=== PATIENT | female | born 1960 | race Caucasian/White ===

== ENCOUNTER 2016-12-20 10:31 | Day surgery (SDC) ==
[2016-12-20] MEDS ORDERED: ZOMETA 4 MG in NS 100 ML IV ONE (10:57)
[2016-12-20] MEDS ORDERED: ARANESP SUBQ ONE (10:58)
[2016-12-20] MEDS ORDERED: HEPARIN ONE (11:16)
[2016-12-20 11:19] VITALS: BP 140/71
== END 2016-12-20 11:51 | disposition home or self-care (01) ==
LOC: INF 10:31
PROVIDERS: ATTEND Internal Medicine
DX: D64.81 Anemia due to antineoplastic chemotherapy (principal); C50.412 Malignant neoplasm of upper-outer quadrant of left female breast; C77.3 Secondary and unspecified malignant neoplasm of axilla and upper limb lymph nodes; Z79.899 Other long term (current) drug therapy; Z79.82 Long term (current) use of aspirin; Z79.818 Long term (current) use of other agents affecting estrogen receptors and estrogen levels; C79.51 Secondary malignant neoplasm of bone; D62 Acute posthemorrhagic anemia; E87.6 Hypokalemia; R74.8 Abnormal levels of other serum enzymes
CPT/HCPCS: 82607; 82728; 82746; 83540; 83550; 84439; 84443; 86300; 96365; 96375; J0881; J3489

== ENCOUNTER 2017-01-03 11:44 | Day surgery (SDC) ==
[2017-01-03] MEDS ORDERED: NS 250 ML ONE (11:59)
[2017-01-03] MEDS ORDERED: FASLODEX IM ONE (12:00)
[2017-01-03] MEDS ORDERED: BENADRYL ONE (12:05)
[2017-01-03] MEDS ORDERED: TYLENOL ONE (12:05)
[2017-01-03] MEDS ORDERED: HEPARIN ONE (16:47)
[2017-01-03 17:21] VITALS: BP 138/72
== END 2017-01-03 15:22 | disposition home or self-care (01) ==
LOC: INF 11:44
PROVIDERS: ATTEND Internal Medicine
DX: C79.9 Secondary malignant neoplasm of unspecified site (principal); C50.919 Malignant neoplasm of unspecified site of unspecified female breast; D63.0 Anemia in neoplastic disease; Z79.899 Other long term (current) drug therapy
CPT/HCPCS: 36430; 86850; 86900; 86901; 86920; 96372; J7050; J9395; P9016

== ENCOUNTER 2017-02-17 18:29 | Inpatient (IN) ==
[2017-02-17] MEDS ORDERED: HEPARIN ONE (19:29)
[2017-02-17] MEDS ORDERED: SODIUM CHLORIDE 0.9% INJ ONE (19:55)
[2017-02-17] MEDS ORDERED: PROTONIX IV ONE (19:55)
[2017-02-17] MEDS ORDERED: NS 1,000 ML IV ONE ×2 (19:55→21:07)
[2017-02-17] MEDS ORDERED: REGLAN IV ONE (19:55)
--- NOTE | 2017-02-17 20:00 | PROVIDER DOCUMENTATION ---
HPI-Abdominal Pain/GI Problem - General Chief Complaint: N/V/D Stated Complaint: N/V/D Time Seen by Provider: 02/17/17 19:39 Source: patient Allergies/Adverse Reactions: Patient Allergies Allergy/AdvReac Type Severity Reaction Status Date / Time amoxicillin Allergy NAUSEA Verified 02/17/17 19:15 potassium clavulanate * AdvReac NAUSEA/VOMI Verified 02/17/17 19:15 [From Augmentin] TING Home Medications: Home Medication List Medication Instructions Recorded Confirmed Last Taken Type Valsartan/Hydrochlorothiazide 320 each PO DAILY 07/03/15 02/17/17 02/11/17 20: 00 History [Valsartan-Hctz 320-25 mg Tab] Aspirin [Aspirin EC] 81 mg PO QHS 11/25/15 02/17/17 02/11/17 20:00 History Calcium Carbonate/Vit D3 [Caltrate 600 mg PO DAILY 01/12/16 02/17/17 02/11/17 20 :00 History 600 + D] Ondansetron [Zofran] 8 mg PO PRN PRN 02/16/16 02/17/17 02/06/17 08:00 History Hydrocodone/APAP 7.5 mg/325 mg 1 each PO Q4H PRN PRN #10 tablet 02/17/1602/12/17 20:00 Rx [[place]-7.5] Fulvestrant [Faslodex] 500 mg IM DIRECTED 11/08/16 02/17/17 01/31/17 11:30 History Zoledronic Acid/Mannitol&Water 4 mg IV DIRECTED 11/08/16 02/17/17 01/17/17 11 :30 History [Zometa 4 mg/100 ml Injection] Promethazine [Phenergan] 12.5 mg PO Q6H PRN PRN #30 tablet 12/03/16 02/17/17 09:00 Rx Folic Acid 1 mg PO DAILY 01/03/17 02/17/17 02/11/17 20:00 History Levothyroxine Sodium [Synthroid] 50 microgm PO DAILY 01/03/17 02/17/17 02/11/17 07:30 History Metoclopramide [Reglan] 10 mg PO AC + HS 04/02/17/17 02/12/17 20:00 History Darbepoetin Raymundo in Polysorbat 100 mcg IJ DIRECTED 02/17/17 02/17/17 Unknown History [Aranesp] Esomeprazole [Nexium] 40 mg PO BID #45 capsule 02/18/17 Unknown Rx - History of Present Illness-ABD Nature of Presenting Problems: 56 y/o WF presents to the ED with c/o N/V/D x 1 day. Pt states stage 4 breast CA pt of Dr. Perdomo with mets to bone. Reports that she has been doing well this week, but took pain meds yesterday without PO reglan or with food and has been vomiting since. States 5-6 episodes of vomiting today with small amounts of diarrhea x 4 today. States has not been able to keep down any food or water. Denies fever/chills, abd. pain, SOB, CP. Review of Systems - Adult - REVIEW OF SYSTEMS - ADULT Constitutional: reports: no symptoms reported. denies: chills, fever Eyes: reports: no symptoms reported. denies: blurred vision, double vision Ears, Nose, Mouth & Throat: reports: no symptoms reported. denies: ear pain, nose pain Cardiovascular: reports: no symptoms reported. denies: chest pain, palpitations Respiratory: reports: no symptoms reported. denies: cough, shortness of breath Gastrointestinal: reports: see HPI, diarrhea, nausea, vomiting. denies: abdominal pain, constipation Genitourinary: reports: no symptoms reported. denies: dysuria, frequency Musculoskeletal: reports: no symptoms reported. denies: joint pain, joint swelling Integumentary: reports: no symptoms reported. denies: nail changes, rash Neurological: reports: no symptoms reported. denies: numbness, paresthesia Psychiatric: reports: no symptoms reported Endocrine: reports: no symptoms reported. denies: cold intolerance, heat intolerance Hematologic/Lymphatic: reports: see HPI. denies: easy bruising, prolonged bleeding Allergic/Immunologic: reports: no symptoms reported All Other Systems: Reviewed and Negative Past History - Adult - PAST MEDICAL HISTORY-ADULT Review of Records: reports: Nursing Assessment Review, Medications Reviewed Major Childhood Illnesses: reports: denies history Cardiovascular: reports: denies history Respiratory: reports: denies history Gastrointestinal: reports: denies history Obstetrical/Gynecological: reports: denies history Genitourinary: reports: denies history Musculoskeletal: reports: denies history Neurological: reports: denies history Psychiatric: reports: anxiety Endocrine/Immune: reports: cancer (breast, stage 4, with mets) Other Conditions: reports: denies history - PRIOR SURGERIES/PROCEDURES Surgical/Procedure History: reports: breast - PRIOR HOSPITALIZATIONS Prior Hospitalizations: reports: for similar symptoms - IMMUNIZATION STATUS Childhood Immunizations: See Nurse Assessment Flu Vaccine: See Nurse Assessment - FAMILY HISTORY Family History: reviewed, not pertinent - SOCIAL HISTORY Smoking: denies Physical Exam-General - PHYSICAL EXAM-ADULT Initial Vital Signs Reviewed: Yes - CONSTITUTIONAL General Appearance: alert, moderate distress, obese - EYES Eyes: pink conjunctivae - HEAD, EARS, NOSE, MOUTH & THROAT HENMT: normocephalic/atraumatic, moist mucous membranes - NECK Neck: normal inspection - RESPIRATORY Respiratory: lungs clear, normal breath sounds. negative: crackles, rales, rhonchi, stridor, wheezing - CARDIOVASCULAR Cardiovascular: tachycardia (mild). negative: bradycardia - GASTROINTESTINAL (ABDOMEN) Abdominal Exam: normal bowel sounds, non tender, soft. negative: distended, guarding, rigid - MUSCULOSKELETAL Back Exam: normal inspection - SKIN Integumentary: normal color (mildly pale), normal turgor. negative: cyanosis, diaphoresis - NEUROLOGIC Neurologic: negative: aphasia - PSYCHIATRIC Psych/Mental Status: normal mood/affect Progress - PLAN OF CARE/RESULTS Progress/Plan/Lab Results: Vital Signs - 8 hr 02/17/17 18:58 Temperature 99.9 F H Pulse Rate 105 H Respiratory Rate 20 Blood Pressure 151/84 O2 Sat by Pulse Oximetry 97 Orders Category Date Time Status Saline Loc DIRECTED Care 02/17/17 19:39 Ordered NPO Diet 02/17/17 19:39 Ordered AMYLASE [CHEM] Stat Lab 02/17/17 19:39 Uncollected CBC WITH ELECTRONIC DIFF [HEME] Stat Lab 02/17/17 19:39 Uncollected COMPREHENSIVE METABOLIC PANEL [CHEM] Stat Lab 02/17/17 19:39 Uncollected LIPASE [CHEM] Stat Lab 02/17/17 19:39 Uncollected URINALYSIS W/POSS RFLX CULT-1 [URINALYSIS] Stat Lab 02/17/17 19:39 Uncollected Heparin Med 02/17/17 19:29 Discontinued 500 unit .ROUTE .STK-MED ONE Metoclopramide [Reglan] Med 02/17/17 19:55 Once 10 mg IV NOW ONE Ns 1000 ml IV Bolus X1 Med 02/17/17 19:55 Ordered 0.9% Sodium Chloride Inj [Ns] 1,000 ml IV 999 mls/hr Pantoprazole [Protonix] Med 02/17/17 19:55 Once 40 mg IV NOW ONE Sodium Chloride 0.9% Med 02/17/17 19:55 Once 10 ml INJ NOW ONE Discussed pt with Dr. Fitch; he agreed with admission due to H&H, hypokalemia, and anemia. Result Diagrams: 02/18/17 16:25 02/18/17 16:25 - CONSULTS/PCP/HOSPITALIST Notification #1 *Consult/PCP/Hospitalist*: Dr. Winters Time Discussed: 21:04 Reason/Comments: anemia, hypokalemia, cyclical vomiting Consult Disposition: Admit Departure - Departure Time of Disposition Decision: 21:05 DIAGNOSIS: Metastatic breast cancer Anemia Qualifiers: Anemia type: unspecified type Qualified Code(s): D64.9 - Anemia, unspecified Cyclical vomiting Qualifiers: Vomiting Intractability: unspecified Nausea presence: unspecified Qualified Code(s): G43.A0 - Cyclical vomiting, not intractable Cancer of breast, female Qualifiers: Breast location: unspecified site of breast Laterality: unspecified laterality Qualified Code(s): C50.919 - Malignant neoplasm of unspecified site of unspecified female breast Disposition: ADMITTED INPATIENT 09 Certified Medical Emergency: Emergent Condition: Stable - Critical Care Note This patient required my direct personal management.: No Attestation - Physician/ SELIN Attestation Patient care was provided by Advanced Practice Provider:: Yes Advanced Practice Provider:: Laura Bryan Advanced Practice Provider documentation review:: The Mid-level provider documentation, treatment plan and medical decision making was reviewed by the physician who agrees with all treatment and medical decision making by the MLP.
[2017-02-17] MEDS ORDERED: HEPARIN INJ ONE (20:20)
[2017-02-17 20:35] LABS: BASO% 2.1 % (0.0-0.8); EOS# 0.11 X1000 (0.0-0.7); EOS% 1.7 % (0.0-10.0); HEMOGLOBIN 6.8 g/dL (12.0-16.0); IMM GRAN# 0.74 X1000 (0.0-0.04); IMM GRAN% 11.1 % (0.0-0.5); LYMPH# 1.23 X1000 (1.2-3.4); LYMPH% 18.5 % (20.5-51.1); MANUAL DIFF NEEDED? NO; MCH 28.8 PG (27-31); MCHC 32.4 g/dL (33-37); MONO# 1.01 X1000 (0.11-0.59); MONO% 15.2 % (1.7-9.3); MPV 9.4 FL (7.4-10.4); NEUT% 51.4 % (42.2-75.2); PLT 45 X1000 (130-400); RBC 2.36 XMIL (4.2-5.4)
[2017-02-17] MEDS ORDERED: ZOFRAN IV ONE (20:43)
[2017-02-17 20:47] LABS: AGAP 18; ALKALINE PHOSPHATASE 142 U/L (32-104); AMYLASE 21 U/L (20-200); BUN 11 mg/dL (8-22); CALCIUM 9.2 mg/dL (8.8-10.2); CHLORIDE 97 mmol/L (98-107); COSMO 275; GOT 62 U/L (10-30); GPT 11 U/L (10-36); LIPASE 21 U/L (13-60); POTASSIUM 2.6 mmol/L (3.5-5.1); SODIUM 138 mmol/L (136-145); TCO2 23 mmol/L (25-35); TOTAL PROTEIN 6.4 g/dL (6.3-8.3)
[2017-02-17 20:51] LABS: URINE SOURCE CLEAN CATCH
[2017-02-17 20:52] LABS: BILIRUBIN URINE NEGATIVE (NEGATIVE); CLARITY CLEAR (CLEAR); COLOR AMBER; GLUCOSE URINE NEGATIVE (NEGATIVE)
[2017-02-17 20:53] LABS: BLOOD URINE TRACE (NEGATIVE); LEUKOCYTES URINE 1+ (NEGATIVE); NITRITE URINE NEGATIVE (NEGATIVE); PH URINE 6.5; PROTEIN URINE 1+(30 mg/dL) mg/dL (NEGATIVE); SP GRAVITY URINE 1.015; UROBILINOGEN URINE 4+(12 mg/dL)
[2017-02-17 20:55] LABS: URINE CAST GRANULAR PRESENT /LPF; URINE CULTURE PL NEEDED? YES; URINE EPITHELIAL CELLS <10 /HPF (<10); URINE RBC <10 /HPF (<10); URINE WBC <10 /HPF (<10)
[2017-02-17] MEDS ORDERED: MORPHINE IV PRN (21:07)
[2017-02-17] MEDS ORDERED: ZOFRAN IV PRN (21:07)
[2017-02-17] MEDS ORDERED: PHENERGAN IV PRN (21:08)
[2017-02-17] MEDS ORDERED: SODIUM CHLORIDE 0.9% INJ PRN (21:08)
[2017-02-17] MEDS ORDERED: POTASSIUM CHLORIDE 40 MEQ in 1/2 NS 1,000 ML IV SCH (21:09)
[2017-02-17] MEDS ORDERED: BENADRYL IV ONE ×2 (21:10→22:30)
[2017-02-17] MEDS: OFIRMEV 1000 MG/ISOTONIC SOLN 1,000 MG/100 ML BOTTLE IV SCH (22:31)
--- NOTE | 2017-02-18 02:09 | Diag Imaging Result Document ---
PROCEDURE NAME: FLAT/UPRIGHT ABD/1 VIEW CHEST - 02/17/2017 ABDOMINAL SERIES: FINDINGS: There is gas visible in nondistended colon. There is gas visible in nondistended small bowel. There is no substantial gaseous bowel distention identified. There is no free air identified. There are surgical clips at the right upper quadrant. The bony structures demonstrate heterogeneous density pattern diffusely with multiple sclerotic areas, compatible with diffuse metastases. Upright chest compared with 12/02/2016. It shows stable borderline cardiomegaly. The lungs appear clear. There is no pleural effusion or pneumothorax identified. Central venous catheter remains in place. There are multiple bone lesions, the majority of which are sclerotic, which are compatible with multiple metastases. IMPRESSION: 1. Nonspecific bowel gas pattern. No indication of bowel obstruction. 2. Stable chest. 3. Evidence of diffuse bony metastatic disease.
[2017-02-18] MEDS ORDERED: 1/2 NS 1,000 ML IV ONE ×3 (03:00)
[2017-02-18] MEDS ORDERED: POTASSIUM CHLORIDE 20 MEQ/SWI 20 MEQ/100 ML IVPB IV ONE ×3 (03:00)
[2017-02-18] MEDS: OFIRMEV 1000 MG/ISOTONIC SOLN 1,000 MG/100 ML BOTTLE IV SCH ×3 (06:10→18:41)
[2017-02-18] MEDS ORDERED: MORPHINE IV PRN (06:58)
[2017-02-18 16:11] VITALS: BP 172/87
[2017-02-18 16:46] LABS: HEMATOCRIT 26.7 % (37.0-47.0); HEMOGLOBIN 9.1 g/dL (12.0-16.0); MCHC 34.1 g/dL (33-37); MCV 88.1 FL (81-99); MPV 10.8 FL (7.4-10.4); RBC 3.03 XMIL (4.2-5.4)
[2017-02-18 16:53] LABS: AGAP 13; BUN 14 mg/dL (8-22); CALCIUM 9.1 mg/dL (8.8-10.2); CHLORIDE 99 mmol/L (98-107); COSMO 272; POTASSIUM 2.9 mmol/L (3.5-5.1); SODIUM 135 mmol/L (136-145); TCO2 23 mmol/L (25-35)
[2017-02-18] MEDS ORDERED: HEPARIN INJ ONE (19:15)
--- NOTE | 2017-02-20 20:15 | HISTORY AND PHYSICAL ---
CHIEF COMPLAINT: Nausea, vomiting, diarrhea. HISTORY OF PRESENT ILLNESS: This is a 56-year-old female with metastatic breast cancer with bony metastases presenting with abdominal pain, nausea, vomiting, diarrhea the last 24 hours. She has been having issues with this off and on with her chemo but interestingly enough, I think she is not really getting any other chemo besides Zometa for her bony metastases. She may be getting other treatment but that is the only thing apparent. She took some pain medications and p.o. Reglan. She has not been able to tolerate p.o. after 5 or 6 episodes of vomiting, several episodes of diarrhea. It took several medications in the ER to help her calm down. The other thing of note is her hemoglobin and hematocrit was 6.8 and 21, potassium at 2.6, and she was placed in observation for further management. PAST MEDICAL HISTORY: 1. Metastatic breast cancer. 2. Hypothyroidism. 3. Chronic nausea, vomiting. 4. Hypertension. PAST SURGICAL HISTORY: She has had a cholecystectomy. She has had Port-A-Cath removed. She has had a left mastectomy. SOCIAL HISTORY: No tobacco or ethanol. 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 ALLERGIES: Amoxicillin, Augmentin. REVIEW OF SYSTEMS: Otherwise negative times a 10 point review of systems. FAMILY HISTORY: Reviewed and noncontributory. PHYSICAL EXAMINATION: VITAL SIGNS: Blood pressure was 151/71, heart rate of 107, respiratory rate of 20, temperature 98.7 degrees, 100% saturation on room air. CARDIOVASCULAR: Regular rate and rhythm. PULMONARY: Bilateral breath sounds. Clear to auscultation. GI: Soft, nontender, nondistended. Bowel sounds are positive. EXTREMITIES: No clubbing or cyanosis. had no peripheral edema. NEUROLOGICAL: Nonfocal. MUSCULOSKELETAL: 4/5 in all 4 extremities. LABORATORY DATA: 1. Showed white count 6.6, hemoglobin and hematocrit 6.8 and 21, platelets of 45,000. Chemistries were unremarkable except for potassium at 2.6. PROBLEM LIST: A 56-year-old female with metastatic breast cancer presenting with nausea, vomiting, symptomatic anemia. 1. Nausea, vomiting likely related to having multiple issues. She has not had a GI workup. I think she will need a workup with GI as an outpatient. She is on Prilosec daily. I think I am going to change her to Nexium b.i.d. and I would recommend outpatient followup with the GI. I discussed about seeing Dr. Metz, so we will continue to follow that. 2. Symptomatic anemia. We will continue to follow very closely. Transfusing 2 units and follow. 3. Metastatic cancer. We will continue to monitor. cc: Felipe Winters MD
--- NOTE | 2017-03-23 20:31 | DISCHARGE SUMMARY ---
ADMISSION DATE: 02/17/2017 DISCHARGE DATE: 02/18/2017 DISCHARGE DIAGNOSES: 1. Intractable nausea, vomiting. 2. Symptomatic anemia. 3. Metastatic cancer. HOSPITAL COURSE: Patient was admitted and placed on IV fluids. Clinically improved. She was anemic and was given 2 units of blood. Repeat hemoglobin and hematocrit was 9 and 26 at discharge from 6 and 21. Potassium went up to 2.9. Clinically she felt improved and was discharged. DISCHARGE MEDICATIONS: 1. Aspirin 81 daily. 2. Calcium 1200 daily. 3. Cipro 500 b.i.d., 4. Aranesp daily. 5. Dexamethasone 4 b.i.d. 6. Folic acid 1 b.i.d. 7. 500. 8. [place] p.r.n. 9. Synthroid 50 daily. 10. Ativan 0.5 q. 8 hours. 11. Reglan 5 p.r.n. 12. Zofran p.r.n. 13. Compazine 10 p.o. q.6 hours. 14. Phenergan p.r.n. 15. Valsartan/hydrochlorothiazide 320/25. DISCHARGE CONDITION: Stable. FOLLOWUP: Referred to Dr. Jeri Perdomo and Dr. Eusebio Luna. cc: Felipe Winters MD
== END 2017-02-18 19:16 | disposition home or self-care (01) ==
LOC: P.ED 18:29 → P.MEDSURG 21:34
PROVIDERS: ATTEND Internal Medicine

== ENCOUNTER 2017-03-17 13:29 | Inpatient (IN) ==
[2017-03-17 14:27] LABS: ALLEN TEST YES; BE 1.8 mmoll (-3.0-3.0); BLOOD TYPE ARTERIAL; DRAW SITE R RADIAL; METHB 1.5 % (0.0-1.5); O2(CT) 9.7 mL/dL (15.0-23.0); PCO2(98.6) 35 mmHg (35-45); PO2(98.6) 81 mmHg (60-100); SAMPLE BLOOD; SAO2 98.8 % (95.0-100.0); THB 7.1 g/dL (11.5-17.4); pH(98.6) 7.47 (7.35-7.45)
--- NOTE | 2017-03-17 14:44 | Diag Imaging Result Doc PS360 ---
CHEST-PORTABLE - 03/17/2017 INDICATION: AMS TECHNIQUE: COMPARISON: 02/17/2017 FINDINGS: Stable right chest port. Stable diffuse skeletal metastatic disease. There is borderline cardiomegaly. No infiltrates or edema. No pneumothorax or large effusion. IMPRESSION: Borderline cardiomegaly. No change from prior. Electronically signed by Neil Morfin 03/17/2017 2:41 PM
[2017-03-17 14:55] LABS: BASO% 0.2 % (0.0-0.8); EOS# 0.06 X1000 (0.0-0.7); EOS% 1.1 % (0.0-10.0); HEMATOCRIT 20.2 % (37.0-47.0); HEMOGLOBIN 6.6 g/dL (12.0-16.0); LYMPH# 1.17 X1000 (1.2-3.4); LYMPH% 21.5 % (20.5-51.1); MCH 30.1 PG (27-31); MCHC 32.7 g/dL (33-37); MCV 92.2 FL (81-99); MONO# 1.02 X1000 (0.11-0.59); MONO% 18.7 % (1.7-9.3); MPV 11.9 FL (7.4-10.4); NEUT% 58.5 % (42.2-75.2); PLT 45 X1000 (130-400); RBC 2.19 XMIL (4.2-5.4)
[2017-03-17] MEDS ORDERED: ROCEPHIN 1 GM/NS 1 GM/50 ML IVPB IV ONE (14:56)
[2017-03-17] MEDS ORDERED: ZOFRAN ONE (14:56)
[2017-03-17] MEDS ORDERED: LEVAQUIN 750 MG/D5W 750 MG/150 ML IVPB IV ONE (14:56)
[2017-03-17 15:00] LABS: INR 1.1; PROTIME 11.6 Seconds (9.2-11.7)
[2017-03-17 15:03] LABS: PTT 46.7 Seconds (22.0-36.0)
[2017-03-17 15:06] LABS: AGAP 16; ALBUMIN 3.2 g/dL (3.5-5.0); ALKALINE PHOSPHATASE 126 U/L (32-104); BUN 21 mg/dL (8-22); CALCIUM 8.5 mg/dL (8.8-10.2); CHLORIDE 98 mmol/L (98-107); CK PROFILE 95 U/L (24-173); COSMO 280; GOT 72 U/L (10-30); GPT 38 U/L (10-36); POTASSIUM 3.2 mmol/L (3.5-5.1); SODIUM 138 mmol/L (136-145); TCO2 24 mmol/L (25-35); TOTAL BILIRUBIN 1.55 mg/dL (0.20-1.00); TOTAL PROTEIN 6.2 g/dL (6.3-8.3)
[2017-03-17 15:26] LABS: MANUAL DIFF NEEDED? NO
--- NOTE | 2017-03-17 15:49 | PROVIDER DOCUMENTATION ---
This chart was entered by Effie Barrera Scribe, acting as scribe for Hermes Bah MD. HPI-General Adult - General Chief Complaint: UTI Symptoms Stated Complaint: weakness, fever, decreased LOC,hx CA Time Seen by Provider: 03/17/17 13:42 Source: patient, EMS Allergies/Adverse Reactions: Patient Allergies Allergy/AdvReac Type Severity Reaction Status Date / Time amoxicillin Allergy NAUSEA Verified 02/17/17 19:15 potassium clavulanate * AdvReac NAUSEA/VOMI Verified 02/17/17 19:15 [From Augmentin] TING Home Medications: Home Medication List Medication Instructions Recorded Confirmed Last Taken Type Valsartan/Hydrochlorothiazide 320 each PO DAILY 07/03/15 02/17/17 03/16/17 History [Valsartan-Hctz 320-25 mg Tab] Aspirin [Aspirin EC] 81 mg PO QHS 11/25/15 02/17/17 03/16/17 History Calcium Carbonate/Vit D3 [Caltrate 600 mg PO DAILY 01/12/16 02/17/17 03/16/17 History 600 + D] Ondansetron [Zofran] 8 mg PO PRN PRN 02/16/16 02/17/17 03/17/17 History Hydrocodone/APAP 7.5 mg/325 mg 1 each PO Q4H PRN PRN #10 tablet 02/17/1603/16/17 Rx [[place]-7.5] Fulvestrant [Faslodex] 500 mg IM DIRECTED 11/08/16 02/17/17 02/25/17 History Promethazine [Phenergan] 12.5 mg PO Q6H PRN PRN #30 tablet 12/03/16 02/17/17 Rx Levothyroxine Sodium [Synthroid] 50 microgm PO DAILY 01/03/17 02/17/17 03/16/17 History Metoclopramide [Reglan] 10 mg PO AC + HS 02/10/17 02/17/17 03/16/17 History - History of Present Illness -Gen Adult Nature of Presenting Problems: Pt is a 56 yof who came to the ED with a cc of UTI. Pt reports she was diagnosed with an UTI two days ago but was never got put on antibiotics. Pt reports she has breast cancer that metastasized to her bones. Pt reports she has been Nauseous but hasn't vomited and very weak. Pt is unable to eat or drink anything. Pt was sent here from oncology. Location of Pain/Injury: reports: none Pain Radiation: reports: no radiation Quality of Pain: reports: none Severity: reports: mild Onset/Duration: reports: 2 days ago Timing: reports: still present Context/Activities at Onset: reports: none Associated Symptoms: reports: nausea, weakness Similar Symptoms Previously?: Yes Recently seen or treated by another doctor?: Yes Review of Systems - Adult - REVIEW OF SYSTEMS - ADULT Constitutional: denies: chills, fever Eyes: reports: no symptoms reported Ears, Nose, Mouth & Throat: reports: no symptoms reported Cardiovascular: reports: no symptoms reported Respiratory: reports: no symptoms reported Gastrointestinal: reports: nausea, poor appetite. denies: diarrhea, vomiting Genitourinary: reports: frequent UTI's. denies: discharge, urgency Musculoskeletal: reports: no symptoms reported Integumentary: reports: no symptoms reported Neurological: reports: no symptoms reported Psychiatric: reports: no symptoms reported Endocrine: reports: no symptoms reported Hematologic/Lymphatic: reports: no symptoms reported Allergic/Immunologic: reports: no symptoms reported All Other Systems: Reviewed and Negative Past History - Adult - PAST MEDICAL HISTORY-ADULT Review of Records: reports: Nursing Assessment Review Major Childhood Illnesses: reports: denies history Cardiovascular: reports: HTN Respiratory: reports: denies history Gastrointestinal: reports: denies history Obstetrical/Gynecological: reports: denies history Genitourinary: reports: denies history Musculoskeletal: reports: denies history Neurological: reports: denies history Psychiatric: reports: anxiety Endocrine/Immune: reports: cancer (breast, stage 4, with mets), thyroid disorder Other Conditions: reports: denies history - PRIOR SURGERIES/PROCEDURES Surgical/Procedure History: reports: breast - PRIOR HOSPITALIZATIONS Prior Hospitalizations: reports: for similar symptoms - IMMUNIZATION STATUS Childhood Immunizations: See Nurse Assessment Flu Vaccine: See Nurse Assessment - FAMILY HISTORY Family History: reviewed, not pertinent Physical Exam-General - PHYSICAL EXAM-ADULT Initial Vital Signs Reviewed: Yes - CONSTITUTIONAL General Appearance: appears well, alert - EYES Eyes: PERRL/EOMI, pink conjunctivae - HEAD, EARS, NOSE, MOUTH & THROAT HENMT: normocephalic/atraumatic, moist mucous membranes - NECK Neck: non-tender, full range of motion - RESPIRATORY Respiratory: chest non-tender, lungs clear, normal breath sounds - CARDIOVASCULAR Cardiovascular: normal peripheral pulses, regular rate, rhythm - CHEST (BREASTS) Chest/Breast: other (left breast removed) - GASTROINTESTINAL (ABDOMEN) Abdominal Exam: normal bowel sounds, non tender, soft - MUSCULOSKELETAL Back Exam: normal inspection, no CVA tenderness Extremity: normal range of motion, non-tender - SKIN Integumentary: normal color, normal turgor - NEUROLOGIC Neurologic: grossly normal - PSYCHIATRIC Psych/Mental Status: normal mood/affect, normal thought content, normal thought process, oriented x 3 Progress - PLAN OF CARE/RESULTS Progress/Plan/Lab Results: Vital Signs - 8 hr 03/17/17 13:46 Temperature 98.0 F Pulse Rate 111 H Respiratory Rate 22 Blood Pressure 137/84 O2 Sat by Pulse Oximetry 95 Result Diagrams: 03/17/17 14:34 03/17/17 14:34 - CONSULTS/PCP/HOSPITALIST Notification #1 *Consult/PCP/Hospitalist*: Dr. Conway Time Discussed: 15:46 Consult Disposition: Admit Departure - Departure Time of Disposition Decision: 15:47 DIAGNOSIS: Anemia Qualifiers: Anemia type: unspecified type Qualified Code(s): D64.9 - Anemia, unspecified UTI (urinary tract infection) Qualifiers: Urinary tract infection type: acute cystitis Hematuria presence: without hematuria Qualified Code(s): N30.00 - Acute cystitis without hematuria Breast cancer in female Qualifiers: Breast location: unspecified site of breast Estrogen receptor status: unspecified Laterality: left Qualified Code(s): C50.912 - Malignant neoplasm of unspecified site of left female breast Disposition: ADMITTED INPATIENT 09 Certified Medical Emergency: Emergent Condition: Stable Referrals and Follow-Ups: Eusebio Luna MD [Primary Care Provider] - - Critical Care Note This patient required my direct & personal management of CC.: No This chart was documented by the indicated scribe, (Effie Barrera Scribe) and accurately reflects the services I performed and decisions made by me, Hermes Bah MD, as attested by the provider's signature.
[2017-03-17] MEDS ORDERED: PHENERGAN IM ONE (15:58)
[2017-03-17] MEDS ORDERED: NS 1,000 ML IV ONE ×2 (16:16→16:30)
[2017-03-17] MEDS ORDERED: PHENERGAN PR PRN (16:17)
[2017-03-17] MEDS ORDERED: SODIUM CHLORIDE 0.9% INJ ONE (16:17)
[2017-03-17] MEDS ORDERED: PROTONIX IV ONE (16:17)
[2017-03-17] MEDS ORDERED: NS 1,000 ML ONE (16:25)
--- NOTE | 2017-03-17 17:36 | HISTORY AND PHYSICAL ---
ONCOLOGIST: Dr. Perdomo. PRESENTING COMPLAINT: Intractable nausea, generalized weakness. HISTORY OF PRESENTING COMPLAINT: Ms. Wade is a 56-year-old female , who was diagnosed with left breast ER positive, IL positive cancer who is status post left mastectomy. Was admitted just last month, January because of generalized weakness. A bone marrow was done on 02/14/2016 and shows metastatic carcinoma consistent with breast primary, focal trilinear hypopietic tissue probably hypocellular. She has been getting radiation therapy for now. She was at the radiation center after a course of radiation today. She has been feeling extremely weak with nausea so she went to see her primary oncologist Dr. Perdomo to see if she could benefit from IV fluids. However over there she was referred to come to the emergency department for more thorough medical management. Of note, the patient was told that last Monday she did have UTI however she was not treated but on 03/15/2017 which was Monday, the blood culture and urine culture were all negative. PAST MEDICAL HISTORY: 1. Metastatic breast cancer. 2. Hypothyroidism. 3. Chronic nausea and vomiting. 4. Hypertension. PAST SURGICAL HISTORY: 1. Cholecystectomy. 2. Recent port placement. 3. Left mastectomy with lymph node resections. SOCIAL HISTORY: No tobacco, no alcohol. 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 ALLERGY: To Amoxil and Augmentin. Actually it makes her very nauseated but no rashes. FAMILY HISTORY: Noncontributory. MEDICATIONS AT HOME INCLUDE: 1. Valsartan hydrochlorothiazide. 2. Aspirin 81 mg daily. 3. Calcium 600 p.o. daily. 4. Zofran 8 mg p.o. p.r.n. 5. Faslodex p.r.n. 6. Levothyroxine 50 mcg daily. 7. Metoclopramide 10 mg p.o. a.c. plus at bedtime. REVIEW OF SYSTEMS: A 14 point review of system conducted with the patient. Unremarkable except what we have in the HPI. Specifically, patient denies any chest pain or shortness of breath. No abdominal pain. No diarrhea and no urinary symptoms. PHYSICAL EXAMINATION: VITALS: Blood pressure is 137/84, pulse is 118, respirations 18, temperature 98.0 degrees. The patient is saturating 97% on room air. GENERAL: Ms. Wade is a 56-year-old morbidly obese, female. She is in bed, looks extremely dry. HEENT: Mucosa is dry, anicteric and acyanotic. NECK: Supple. HEAD: Is normocephalic and atraumatic. There is some swelling over the left parietotemporal scalp which is not new. Patient has been told it is a metastatic disease. CHEST: Good air entry bilaterally. No crepitations. No rhonchi. Left mastectomy is noted. There is also some mild lymphedema on the left upper extremity. CARDIOVASCULAR: Regular rate and rhythm. There is no murmur. No rubs, no gallops. ABDOMEN: Soft, distended. There is old laparoscopic scars on the anterior abdominal wall. No hepatosplenomegaly and bowel sounds are present. 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 Executive functions remain intact and did not appreciate any cerebellar dysfunctions. Cranial nerves 2-12 have been grossly examined and unremarkable. Power is 5/5 in all extremities and there is no sensory deficit. PSYCHIATRIC: Patient is very cooperative and has good judgment and insight. LABORATORY DATA: WBC is 5.45, hemoglobin is 6.6, platelet count of 45,000. Chemistry: Sodium is 138, potassium is 3.2, chloride is 98, bicarb is 24, creatinine is 0.8. BUN is 21, glucose is 121. Calcium is 8.5, total bilirubin is 1.55, AST 72, ALT is 38, alkaline phosphatase is 126. ASSESSMENT: Ms. Wade is a 56-year-old female, with a diagnosis of a metastatic stage IV, ER/IL positive breast cancer who is being getting radiation therapy. Comes in because of nausea and vomiting associated with weakness having been found to be severely anemic and thrombocytopenic. Is going to be admitted for further medical care. 1. Clinical dehydration. 2. Anemia with pancytopenia. 3. Stage IV ER/IL positive breast cancer. 4. Metastatic bone disease. 5. Nausea and vomiting. Etiology is unclear. We suspect it is due to brain mets. Patient normally follows up with Dr. Metz for the nausea and vomiting. So in general we are going to admit Ms. Wade to the medical floor with telemetry. We are going to put her on normal saline for adequate hydration We will group and crossmatch her for at least 2 units of PRBC transfusion. We will do blood cultures, urine cultures. I would hold off on antibiotics for now since the urine and blood cultures done on 03/15 are completely negative. I will put her on b.i.d. Protonix and p.r.n. promethazine as well as Zofran. We will get Dr. Perdomo, her primary oncologist to see her while she is here in the hospital. If the nausea and hacking does not improve we will consult Dr. Metz as well to see her. cc: Cristian Conway MD [facility]
[2017-03-17] MEDS: NS 1,000 ML IV SCH (18:15)
[2017-03-17] MEDS: ZOFRAN IV PRN ×2 (18:15→21:15)
[2017-03-17 18:54] LABS: BILIRUBIN URINE NEGATIVE (NEGATIVE); BLOOD URINE NEGATIVE (NEGATIVE); COLOR YELLOW; GLUCOSE URINE NEGATIVE (NEGATIVE); LEUKOCYTES URINE SMALL (NEGATIVE); NITRITE URINE NEGATIVE (NEGATIVE); PROTEIN URINE 50 mg/dL (NEGATIVE); SP GRAVITY URINE 1.024; TURBIDITY URINE CLEAR (CLEAR); URINE MICRO REVIEW NEEDED? NO; URINE SOURCE CLEAN CATCH; UROBILINOGEN URINE 2 mg/dL (NORMAL)
[2017-03-17 18:55] LABS: UR EPITHELIAL CELLS <10 /HPF (<10); URINE BACTERIA NEGATIVE /HPF; URINE CULTURE NEEDED? YES; URINE RBC <10 /HPF (<10)
[2017-03-17] MEDS ORDERED: COMPAZINE IV ONE (22:04)
[2017-03-18] MEDS: NS 1,000 ML IV SCH ×3 (00:53→18:46)
[2017-03-18] MEDS: PROTONIX IV SCH ×2 (04:24→17:03)
[2017-03-18] MEDS: SODIUM CHLORIDE 0.9% INJ SCH ×2 (04:24→17:03)
[2017-03-18] MEDS: SYNTHROID PO SCH (06:50)
[2017-03-18 08:08] LABS: INR 1.18; PROTIME 12.5 Seconds (9.2-11.7)
[2017-03-18 08:19] LABS: AGAP 14; ALBUMIN 2.7 g/dL (3.5-5.0); ALKALINE PHOSPHATASE 107 U/L (32-104); BUN 17 mg/dL (8-22); CALCIUM 8.1 mg/dL (8.8-10.2); CHLORIDE 103 mmol/L (98-107); COSMO 282; GOT 49 U/L (10-30); GPT 28 U/L (10-36); POTASSIUM 3.1 mmol/L (3.5-5.1); SODIUM 140 mmol/L (136-145); TCO2 23 mmol/L (25-35); TOTAL BILIRUBIN 2.06 mg/dL (0.20-1.00); TOTAL PROTEIN 5.5 g/dL (6.3-8.3)
[2017-03-18 08:23] LABS: BASO% 1.4 % (0.0-0.8); EOS# 0.08 X1000 (0.0-0.7); EOS% 1.9 % (0.0-10.0); HEMOGLOBIN 8.6 g/dL (12.0-16.0); IMM GRAN# 0.62 X1000 (0.0-0.04); IMM GRAN% 14.6 % (0.0-0.5); LYMPH# 0.91 X1000 (1.2-3.4); LYMPH% 21.5 % (20.5-51.1); MANUAL DIFF NEEDED? YES; MCH 28.6 PG (27-31); MCHC 33.1 g/dL (33-37); MCV 86.4 FL (81-99); MONO# 0.65 X1000 (0.11-0.59); MONO% 15.3 % (1.7-9.3); NEUT% 45.3 % (42.2-75.2); PLT 31 X1000 (130-400); RBC 3.01 XMIL (4.2-5.4)
[2017-03-18] MEDS ORDERED: KLOR-CON PO ONE (08:56)
[2017-03-18] MEDS ORDERED: MAGNESIUM SULFATE 2 GM/S.W.I. 2 GM/50 ML IVPB IV ONE (08:56)
[2017-03-18] MEDS ORDERED: POTASSIUM CHLORIDE 40 MEQ/SWI 40 MEQ/100 ML IVPB IV ONE (11:00)
[2017-03-18 11:47] LABS: BANDS 20 % (0-1); LYMPHS 12 % (21-51)
--- NOTE | 2017-03-18 14:21 | CONSULTATION ---
DATE OF CONSULTATION: 03/18/2017 ADMITTING PHYSICIAN: Dr. Conway. REQUESTING PHYSICIAN: Dr. Conway. We appreciate this consult. CHIEF COMPLAINT: Metastatic breast cancer with bone marrow involvement. HISTORY OF PRESENT ILLNESS: Ms. Wade is a very pleasant, 56-year-old, female, well known to Dr. Perdomo with a history of metastatic breast cancer with bone marrow involvement with plans for treatment with Taxol. The patient is currently receiving radiation therapy to a large skull metastasis. The patient is status post admission last month secondary to generalized weakness. The patient has been getting radiation therapy and reports that after a course of radiation on the day of admission the patient began feeling extremely weak with nausea and therefore presented to [facility] for evaluation by Dr. Perdomo. The patient was given IV fluid hydration with little improvement and it was decided that the patient would be admitted to [facility]. The patient was found to have a urinary tract infection prior to admission however urinalysis currently reveals no UTI. The patient was given IV Invanz in clinic on Monday prior to admission. Urine culture is currently pending. Presently, the patient is sitting up in a chair. She reports that she feels much improved at this time. The patient is status post 2 units packed red blood cell transfusions secondary to anemia. Hemoglobin is currently 8.6. Additionally the patient is status post transfusion of platelets with a platelet count of 31,000 currently. Chest x-ray was negative for infiltrates or edema. Blood cultures are currently pending. PAST MEDICAL HISTORY: 1. Metastatic breast cancer. 2. Hypothyroidism. 3. Chronic nausea and vomiting. 4. Hypertension. PAST SURGICAL HISTORY: 1. Cholecystectomy. 2. Recent port placement. 3. Left mastectomy with lymph node resection. FAMILY HISTORY: Negative for any hematologic or oncologic problems. SOCIAL HISTORY: The patient denies tobacco, alcohol or illicit drugs. MEDICATIONS ON ADMISSION: 1. Valsartan hydrochlorothiazide. 2. Aspirin 81 mg. 3. Calcium. 4. Zofran. 5. Faslodex. 6. Levothyroxine. 7. Metoclopramide. ALLERGIES: Are to Amoxil and Augmentin. REVIEW OF SYSTEMS: A 14 point review of systems was obtained and is negative except as mentioned in HPI. PHYSICAL EXAM: Ms. Wade is a 56-year-old, female, sitting up in bed, currently in no immediate distress.Vital Signs: Temperature 98.1, blood pressure 147/56, heart rate 106, respirations 18, O2 saturation 98% on room air. HEENT: Normocephalic, atraumatic. Mucous membranes are pale and moist. Sclerae is anicteric. Extraocular movements intact. Neck: Supple. Lungs: Clear to auscultation bilaterally. Chest expansion is equal bilaterally. CV: S1, S2 is heard without murmur, rub or gallop. Abdomen: Soft. Nondistended, nontender. Bowel sounds are positive in all quadrants. No rebound or guarding noted. Extremities: With 1+ bilateral lower extremity edema. Dermatologic: The patient does have mottling to her upper back as well as large bruises to her right upper arm. Neurologic: The patient is awake, alert, and oriented x3. She has no focal motor deficit at this time. LABORATORY DATA: Hemoglobin 8.6, hematocrit 26.0 white blood cell count 4.24, platelets 31,000. ANC 1.92. INR 1.18. Sodium 140, potassium 3.1, chloride 103, CO2 is 23, BUN 17 , creatinine 0.7, glucose 282. Bilirubin 2.06. Alkaline phosphatase 107, AST 49, ALT 28. TSH 1.90. Urinalysis is negative for UTI. IMAGING STUDIES: The chest x-ray reveals borderline cardiomegaly with stable diffuse skeletal mets and no infiltrates or edema. ASSESSMENT AND PLAN: 1. Metastatic breast cancer with bone marrow involvement with plans for Taxol. Currently the patient is receiving radiation therapy to large skull metastasis. 2. Dehydration on IV fluid repletion with improvement in her BUN and creatinine. Continue to follow laboratory data. 3. Pancytopenia status post 2 units packed red blood cells. Will transfuse platelets if platelet count drops below 30,000. Follow CBC. 4. Nausea and vomiting on IV antiemetics and Protonix. The patient has had no further nausea or vomiting. 5. Hypokalemia. Currently being repleted. We will continue follow potassium daily. 6. Rule out sepsis. On Rocephin and Levaquin prophylactically. Cultures are currently pending. 7. We will follow along with you and make further recommendations pending outcomes. The above reflects the history, exam, assessment and plan of Dr. Perdomo. Dictated by DINO Burgess for Jeri Perdomo MD cc: DINO Burgess MD [facility]LAND[facility]
--- NOTE | 2017-03-18 15:36 | PROGRESS NOTE ---
DATE: 03/18/2017 SUBJECTIVE: Today, Ms. Wade was sitting up in the chair. She refers to be doing a whole lot better, feels stronger than before. OBJECTIVE: Vital signs: Blood pressure is 158/82, pulse of 122, respirations 18, temperature is 98.1 degrees. General: Ms. Wade is a 56-year-old female. She is sitting up in a chair. Morbidly obese. Was not in any distress. HEENT: Mucosa slightly pale. Anicteric. Acyanotic. Neck: Supple. Chest: Good air entry bilateral. No crepitations. There is a port in the right upper chest wall. Cardiovascular: Regular rate and rhythm. Slightly tachycardic. Abdomen: Soft, nontender. Extremities: No pedal edema. Central Nervous System: Patient is alert and oriented x4. There is no focal neurological deficit. LABORATORY DATA: WBC is 4.24 and hemoglobin is 8.6. This is after 2 units of PRBC. Platelet count is 31,000. There is 20% bands on the peripheral smear. Chemistry: Sodium is 140, potassium is 3.1, chloride is 103, bicarbonate is 23, total bilirubin is 2.06, AST is 49, ALT is 28, alkaline phosphatase is 107. Urine culture, so far, shows no growth. Blood culture preliminary is, so far, negative. ASSESSMENT: 1. Clinical dehydration. 2. Pancytopenia secondary to bone marrow infiltration of metastatic breast cancer. 3. Nausea and vomiting, improved. 4. Stage IV ER/LA positive breast cancer. Patient is currently on radiation therapy. 5. Significant anemia on presentation with hemoglobin of 6.6. The patient has been transfused 2 PRBCs and platelet count is today 31, and I think there is a plan to transfuse her a unit of platelets once the platelets go below 30. 6. Transaminitis. Unclear of the cause, but this is improving. So I think, in general, Ms. Wade is gradually getting better. She feels a whole lot stronger. It sounds to me like she is transfusion dependent because, from her history, she gets transfusion every now and then from her oncologist. I think the main issue is that her disease has spread into her bone and she is probably not making any blood cells. We are going to continue with the IV fluids for today. We would also replace her potassium, which is slightly low. cc: Cristian Conway MD
[2017-03-19] MEDS: SODIUM CHLORIDE 0.9% INJ SCH ×2 (03:58→17:53)
[2017-03-19] MEDS: NS 1,000 ML IV SCH ×2 (03:58→17:53)
[2017-03-19] MEDS: PROTONIX IV SCH ×2 (03:58→17:53)
[2017-03-19 06:44] LABS: BASO% 0.8 % (0.0-0.8); EOS# 0.07 X1000 (0.0-0.7); EOS% 1.5 % (0.0-10.0); HEMATOCRIT 23.9 % (37.0-47.0); IMM GRAN# 0.42 X1000 (0.0-0.04); IMM GRAN% 8.9 % (0.0-0.5); LYMPH# 1.08 X1000 (1.2-3.4); LYMPH% 22.8 % (20.5-51.1); MANUAL DIFF NEEDED? YES; MCH 28.9 PG (27-31); MCHC 33.5 g/dL (33-37); MCV 86.3 FL (81-99); MONO# 0.62 X1000 (0.11-0.59); MONO% 13.1 % (1.7-9.3); MPV 10.8 FL (7.4-10.4); NEUT% 52.9 % (42.2-75.2); PLT 26 X1000 (130-400); RBC 2.77 XMIL (4.2-5.4)
[2017-03-19 06:46] LABS: AGAP 14; ALBUMIN 2.7 g/dL (3.5-5.0); ALKALINE PHOSPHATASE 113 U/L (32-104); BUN 18 mg/dL (8-22); CALCIUM 8.4 mg/dL (8.8-10.2); CHLORIDE 105 mmol/L (98-107); COSMO 284; GOT 43 U/L (10-30); GPT 25 U/L (10-36); POTASSIUM 3.3 mmol/L (3.5-5.1); SODIUM 141 mmol/L (136-145); TCO2 22 mmol/L (25-35); TOTAL BILIRUBIN 1.18 mg/dL (0.20-1.00); TOTAL PROTEIN 5.4 g/dL (6.3-8.3)
[2017-03-19] MEDS: SYNTHROID PO SCH (07:13)
[2017-03-19 07:26] LABS: BANDS 14 % (0-1); HYPOCHROM 1+; LYMPHS 18 % (21-51); MONO 6 % (1-9); POLYCHROM 1+
[2017-03-19] MEDS ORDERED: KLOR-CON PO ONE (08:04)
[2017-03-19 08:17] LABS: RETIC% 1.23 % (0.8-2.1); RETIC-HE 36.7 PG (28.2-36.6)
[2017-03-19] MEDS ORDERED: POTASSIUM CHLORIDE 20% LIQUID PO ONE (08:40)
[2017-03-19] MEDS ORDERED: COMPAZINE IV PRN (10:43)
[2017-03-19] MEDS: FOLIC ACID PO SCH (10:47)
--- NOTE | 2017-03-19 13:39 | PROGRESS NOTE ---
DATE: 03/19/2017 SUBJECTIVE: Today Ms. Wade refers to be doing okay. Feels a whole lot stronger than when she came. OBJECTIVE: Vital signs: Blood pressure is 149/59, pulse of 109, respirations 20, temperature 97.9 degrees. General: Ms. Waed is a 56-year-old female, morbidly obese. She was sitting up in a chair. Was not in any distress. HEENT: Mucosa is pink and moist. Anicteric. Acyanotic. Neck: Supple. Skin: There are a few bruises on the right arm. Chest: Good air entry bilaterally. No crepitations. No rhonchi. Cardiovascular: Regular rate and rhythm. Abdomen: Soft, distended, but nontender. Extremities: No pedal edema. RELIEF SALESPERSON: There is no focal neurological deficit. LABORATORY DATA: WBC is 4.74, hemoglobin is 8.0, platelet count of 26,000. There are 14% of bands on peripheral smear which is improved from yesterday. Reticulocyte count is 1.23 which is consistent with hypoproliferative bone marrow state. Folate of 3.7, ridiculously low. The liver enzymes have improved. ASSESSMENT: 1. Clinical dehydration. This has resolved. 2. Pancytopenia secondary to bone marrow infiltration of metastatic breast cancer. Reticulocyte count is low which is also consistent with hypoproliferative bone marrow state. 3. Folate deficiency. We will replace this. 4. Nausea and vomiting. It is improved with Compazine. 5. Stage IV ER/IA positive breast cancer HER2 negative. The patient follows up with Dr. Perdomo. 6. Significant anemia on presentation. Hemoglobin was 6.6. Patient is status post 2 PRBC transfusion. Hemoglobin is a lot better today. 7. Thrombocytopenia which I think is also due to bone marrow suppression. Patient is not actively bleeding but I think the trend is that she is going to be needing that very soon since we know the bone marrow is infiltrated with breast cancer. We are going to go ahead and give her a unit of platelets and repeat the platelet count for later this afternoon. If it has normalized we should be able to discharge her later on today. 8. Transaminitis. This has improved. cc: Cristian Conway MD
[2017-03-19] MEDS ORDERED: NORCO-10 PO PRN (14:24)
[2017-03-19 16:20] LABS: BASO% 0.8 % (0.0-0.8); EOS# 0.07 X1000 (0.0-0.7); EOS% 1.4 % (0.0-10.0); HEMATOCRIT 22.2 % (37.0-47.0); HEMOGLOBIN 7.4 g/dL (12.0-16.0); IMM GRAN# 0.56 X1000 (0.0-0.04); IMM GRAN% 11.2 % (0.0-0.5); LYMPH# 1.15 X1000 (1.2-3.4); MANUAL DIFF NEEDED? YES; MCHC 33.3 g/dL (33-37); MCV 87.1 FL (81-99); MONO# 0.71 X1000 (0.11-0.59); MONO% 14.2 % (1.7-9.3); MPV 9.4 FL (7.4-10.4); NEUT% 49.4 % (42.2-75.2); PLT 60 X1000 (130-400); RBC 2.55 XMIL (4.2-5.4)
[2017-03-19 16:38] LABS: BANDS 6 % (0-1); EOS 4 % (1-10); LYMPHS 16 % (21-51); MONO 4 % (1-9); NRBC 1 % (0-0)
[2017-03-20] MEDS: FOLIC ACID PO SCH ×3 (02:21→08:10)
[2017-03-20] MEDS: PROTONIX IV SCH (03:28)
[2017-03-20] MEDS: NS 1,000 ML IV SCH (03:29)
[2017-03-20] MEDS: SODIUM CHLORIDE 0.9% INJ SCH (03:29)
[2017-03-20] MEDS: SYNTHROID PO SCH (06:13)
[2017-03-20 06:53] LABS: BASO% 1.2 % (0.0-0.8); EOS# 0.09 X1000 (0.0-0.7); EOS% 1.8 % (0.0-10.0); HEMATOCRIT 23.4 % (37.0-47.0); HEMOGLOBIN 7.7 g/dL (12.0-16.0); IMM GRAN# 0.68 X1000 (0.0-0.04); IMM GRAN% 13.4 % (0.0-0.5); LYMPH% 25.7 % (20.5-51.1); MANUAL DIFF NEEDED? YES; MCH 29.2 PG (27-31); MCHC 32.9 g/dL (33-37); MCV 88.6 FL (81-99); MONO% 13.8 % (1.7-9.3); MPV 10.9 FL (7.4-10.4); NEUT% 44.1 % (42.2-75.2); PLT 59 X1000 (130-400); RBC 2.64 XMIL (4.2-5.4)
[2017-03-20 06:56] LABS: AGAP 14; BUN 18 mg/dL (8-22); CALCIUM 9.3 mg/dL (8.8-10.2); CHLORIDE 106 mmol/L (98-107); COSMO 287; POTASSIUM 4.2 mmol/L (3.5-5.1); SODIUM 143 mmol/L (136-145); TCO2 23 mmol/L (25-35)
[2017-03-20 07:13] LABS: BASO 1 % (0-1); EOS 2 % (1-10); LYMPHS 20 % (21-51); MONO 15 % (1-9)
--- NOTE | 2017-03-20 07:57 | EKG Report ---
Test Performed on : 03/17/2017 5:01:40 PM Test Reason : AMS Blood Pressure : / mmHG Vent. Rate : 115 BPM Atrial Rate : 115 BPM P-R Int : 118 ms QRS Dur : 092 ms QT Int : 384 ms P-R-T Axes : 029 015 100 degrees QTc Int : 531 ms Sinus tachycardia. Nonspecific ST and T wave abnormality Prolonged QT Abnormal ECG When compared with ECG of 23-APR-2016 08:04, Nonspecific T wave abnormality now evident in Lateral leads Unconfirmed Result
[2017-03-20 08:08] VITALS: BP 147/57
--- NOTE | 2017-04-01 18:10 | DISCHARGE SUMMARY ---
ADMISSION DATE: 03/17/2017 DISCHARGE DATE: 03/20/2017 FINAL DISCHARGE DIAGNOSES: 1. Dehydration. 2. Pancytopenia. 3. Folate deficiency. 4. Nausea with vomiting. 5. Metastatic breast cancer. 6. Thrombocytopenia. 7. Transaminitis. CONSULTATIONS REQUESTED DURING THIS HOSPITAL STAY: Oncology consultation with Dr. Perdomo. HOSPITAL COURSE: Ms. Wade is a 56-year-old female with a history of metastatic breast cancer who presented to the ER with a chief complaint of nausea, vomiting and weakness. On admission the patient was noted to be markedly anemic with a hemoglobin of 6.6 and thrombocytopenia with a platelet count of 45,000. It was thought that the patient was suffering from dehydration and so the patient was admitted to the hospitalist service. The patient was started on IV fluids and received a blood transfusion. The patient's oncologist Dr. Perdomo was consulted for further recommendations. It was thought that the patient's anemia and thrombocytopenia were secondary to bone marrow invasion from the cancer. The patient also required a platelet transfusion over the course of the hospital stay. As the patient's dehydration improved her overall clinical symptoms resolved. The patient was cedeno cultured and the cultures were noted to be negative. The patient continued to improve clinically and was ultimately cleared for discharge home on 03/20/2017. DISCHARGE MEDICATIONS: 1. Compazine 10 mg p.o. every 6 hours p.r.n. for nausea. 2. Valsartan/hydrochlorothiazide 1 tab oral daily. 3. Aspirin 81 mg p.o. daily. 4. Caltrate with vitamin D 1200 mg p.o. daily. 5. Zofran 8 mg p.o. p.r.n. for nausea. 6. Synthroid 50 mcg p.o. daily. 7. Ativan 0.5 mg p.o. every 8 hours p.r.n. for anxiety. 8. Dexamethasone 4 mg p.o. twice a day. 9. Reglan 5 mg p.o. every 6 hours. 10. [place] 10/325 one tab oral every 6 hours p.r.n. 11. Folic acid 1 mg p.o. twice a day. DISCHARGE DIET: 2 g sodium diet. ACTIVITY: As tolerated. FOLLOWUP INSTRUCTIONS: The patient will need to follow up with Dr. Perdomo as scheduled by her clinic. cc: Laura Walsh MD
== END 2017-03-20 11:14 | disposition home or self-care (01) ==
LOC: ED 13:29 → 3N 17:00 → SUATTDRO 17:00 → 3N 03-18 12:10
PROVIDERS: ATTEND Internal Medicine

== ENCOUNTER 2017-05-01 11:57 | Inpatient (IN) ==
[2017-05-01 13:03] LABS: BASO% 3.6 % (0.0-0.8); EOS# 0.14 X1000 (0.0-0.7); EOS% 1.5 % (0.0-10.0); HEMATOCRIT 24.9 % (37.0-47.0); IMM GRAN# 1.17 X1000 (0.0-0.04); IMM GRAN% 12.8 % (0.0-0.5); LYMPH# 2.06 X1000 (1.2-3.4); LYMPH% 22.6 % (20.5-51.1); MANUAL DIFF NEEDED? YES; MCH 28.3 PG (27-31); MCHC 32.1 g/dL (33-37); MONO% 19.8 % (1.7-9.3); MPV 10.9 FL (7.4-10.4); NEUT% 39.7 % (42.2-75.2); PLT 41 X1000 (130-400); RBC 2.83 XMIL (4.2-5.4)
[2017-05-01 13:17] LABS: AGAP 14; ALBUMIN 3.2 g/dL (3.5-5.0); ALKALINE PHOSPHATASE 208 U/L (32-104); BUN 11 mg/dL (8-22); CALCIUM 8.1 mg/dL (8.8-10.2); CHLORIDE 102 mmol/L (98-107); COSMO 282; GOT 30 U/L (10-30); GPT 14 U/L (10-36); MAGNESIUM 1.9 mg/dL (1.5-2.7); SODIUM 141 mmol/L (136-145); TCO2 25 mmol/L (25-35); TOTAL BILIRUBIN 1.09 mg/dL (0.20-1.00)
[2017-05-01 13:19] LABS: INR 1.13
--- NOTE | 2017-05-01 13:28 | Diag Imaging Result Doc PS360 ---
EXAM: FLAT/UPRIGHT ABD/1 VIEW CHEST HISTORY: n/v TECHNIQUE: AP upright chest and flat and upright abdomen three views COMMENT: There is generalized sclerosis of the skeleton consistent with osteoblastic metastatic disease. The bowel gas pattern is unremarkable. There is no evidence organomegaly or mass. There has been previous cholecystectomy. The appearance of the chest is stable compared to that of 03/17/2017. IMPRESSION: Osteoblastic metastatic disease. No evidence of acute intra-abdominal disease. Electronically signed by Anastacio Ambrose 05/01/2017 1:25 PM
[2017-05-01 13:38] LABS: LYMPHS 21 % (21-51); MONO 23 % (1-9); NRBC 3 % (0-0)
--- NOTE | 2017-05-01 14:12 | Diag Imaging Result Doc PS360 ---
EXAM: MRI BRAIN W W/O CONTRAST HISTORY: brain mets TECHNIQUE: MRI of the brain with and without gadolinium: T1 axial and sagittal, T2 and flair axial, DWI axial, gradient echo coronal, FSPGR 3-D with gadolinium axial with coronal reconstruction. COMMENT: There is no evidence of restricted diffusion, bleed or abnormal extra-axial fluid collection. There is generalized meningeal enhancement. There is enhancement of the diploic space which is somewhat thickened. Slightly increased T2-weighted signal intensity is present in the jannette. There is periventricular white matter hyperintensity on the T2-weighted images and patchy hyperintensities present in the diploic space. There is apparent erosion of the inner table adjacent to the left temporal lobe. 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 There are effusions in both mastoid air cells. There is a mucous retention cyst in the left sphenoid sinus. Compared to the previous CT of 02/28/2017 there has been marked improvement in the soft tissue mass on both sides of the calvarium over the left temporal region. IMPRESSION: No evidence of intracerebral metastatic disease. Diffuse meningeal enhancement. This is probably related to the metastatic disease throughout the calvarium. Electronically signed by Anastacio Ambrose 05/01/2017 2:09 PM
[2017-05-01] MEDS: NS 1,000 ML IV SCH (14:17)
[2017-05-01] MEDS ORDERED: POTASSIUM CHLORIDE 40 MEQ/SWI 40 MEQ/100 ML IVPB IV ONE (15:30)
--- NOTE | 2017-05-01 18:00 | HISTORY AND PHYSICAL ---
ONCOLOGIST: Jeri Perdomo MD. PRIMARY CARE PHYSICIAN: Eusebio Luna MD. CHIEF COMPLAINT: Nausea, vomiting, diarrhea. HISTORY OF PRESENT ILLNESS: Mrs. Wade is a 57-year-old, female with a history of morbid obesity, stage IV breast cancer with diffuse bone involvement and anemia/thrombocytopenia, who presents directly from Dr. Jeri Perdomo's office for intractable nausea, vomiting, and diarrhea. The patient states she has had diarrhea and vomiting for the past 2 weeks or so. However, over the weekend she has had acute worsening, she has had multiple bowel movements a day as well as nausea and vomiting. She denies any overt abdominal pain, she has no fevers or chills. She had her last chemotherapy treatment around 1 week ago and radiation treatment several weeks ago. Apparently, she had diffuse skull metastases with large soft tissue component in the left temporal region and intracranial dural compartment 2 months ago. She has since undergone multiple rounds of chemo and radiation. Head CT done 4 days ago does show resolution but did show a small nodular density associated with ependymal lining of the posterior aspect of the right lateral ventricle. The patient herself denies any neurologic complaints. She has no changes in her vision or loss of consciousness. No unilateral weakness or sensation changes. Because of her intractable nausea, vomiting and diarrhea the patient was directly admitted to us. We have since ordered labs and diagnostics. Her labs show microcytic anemia, hypokalemia, mildly elevated liver function tests but otherwise unremarkable. We are now going to admit her for further treatment and observation. PAST MEDICAL HISTORY: 1. Metastatic breast cancer. 2. Hypothyroidism. 3. Chronic nausea and vomiting. 4. Hypertension. 5. Morbid obesity. PAST SURGICAL HISTORY: She has had a cholecystectomy, port placement and left mastectomy with lymph node dissection. SOCIAL HISTORY: Patient denies tobacco, alcohol or drug use. She works at [employer] in [place]. FAMILY HISTORY: Noncontributory. ALLERGIES: Augmentin. HOME MEDICATIONS: Currently being compiled. REVIEW OF SYSTEMS: A 14 point review of systems obtained and found to be negative with the exception of the HPI. PHYSICAL EXAMINATION: VITAL SIGNS: Blood pressure is 143/62, heart rate is 117, O2 saturation 92% on room air, temperature is 98 degrees. GENERAL: This is a morbidly obese, female, lying in a hospital bed, in no acute distress. NEUROLOGIC: The patient is awake, alert, and oriented. She follows commands without focal deficits. HEENT: Head is atraumatic, normocephalic. Her pupils are equal, round, reactive to light. Oral mucosa is dry. Trachea is midline. No JVD. CHEST: Clear to auscultation bilaterally. CARDIOVASCULAR: Regular rate and rhythm. S1-S2 is noted. No murmurs. GASTROINTESTINAL: Obese, soft, nondistended, nontender. Bowel sounds are hypoactive. EXTREMITIES: No edema, clubbing or cyanosis. Pulses are diminished but palpable bilaterally. DIAGNOSTIC DATA: Abdomen x-ray with single-view chest shows osteoblastic metastatic disease. No evidence of acute intra-abdominal disease. Chest x-ray is negative. Brain MRI shows no evidence of intracerebral metastatic disease. Diffuse meningeal enhancement. This is probably related to the metastatic disease throughout the calvarium. WBC 9.11, hemoglobin 8, hematocrit 24.9, platelet count 41,000, INR 1.13. Sodium 141, potassium 3.0, chloride 102, CO2 25, anion gap 14, BUN 11, creatinine 0.8, glucose 115, calcium 8.1, magnesium 1.9, bilirubin 1.09, AST 30, ALT 14, alkaline phosphatase 208, albumin 3.2, TSH 1.2. ASSESSMENT AND PLAN: 1. Intractable nausea, vomiting, and diarrhea: Currently patient is stable. She denies any of these complaints but we will go ahead and add multiple antiemetics and IV fluids. We are going to check stool studies. Patient denies any fever so we will hold off on any antibiotics. 2. 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 Perdomo. The patient may need a lumbar puncture. Currently she has no focal deficits. We will monitor her neurologic status closely. 3. Normocytic anemia: We will recheck iron studies, Hem/Onc is following. 4. Hypokalemia: Magnesium within normal limits. We will start some IV KCl now and recheck in the morning. 5. Thrombocytopenia: Secondary to her metastatic breast cancer to the bone, she seems around baseline currently. We will monitor. 6. Hypothyroidism: We will continue her Synthroid. Her TSH is within normal limits. 7. Hypertension: Chronic stable. Continue home medications. 8. We are going to provide SCDs for DVT prophylaxis given the possibility of lumbar puncture. Further recommendations to follow. Dictated by DINO Rich for Jose June MD cc: DINO Rich MD Heather Shah, MD Brian R. James, MD
[2017-05-01] MEDS: FLAGYL PO SCH (22:46)
[2017-05-02] MEDS: NS 1,000 ML IV SCH ×2 (02:26→18:24)
[2017-05-02] MEDS: FLAGYL PO SCH ×3 (05:45→20:56)
[2017-05-02 06:46] LABS: AGAP 10; BUN 10 mg/dL (8-22); CALCIUM 8.6 mg/dL (8.8-10.2); CHLORIDE 105 mmol/L (98-107); COSMO 281; POTASSIUM 3.7 mmol/L (3.5-5.1); SODIUM 141 mmol/L (136-145); TCO2 26 mmol/L (25-35)
[2017-05-02 06:48] LABS: HEMATOCRIT 23.7 % (37.0-47.0); HEMOGLOBIN 7.4 g/dL (12.0-16.0); MCH 28.4 PG (27-31); MCHC 31.2 g/dL (33-37); MCV 90.8 FL (81-99); MPV 9.6 FL (7.4-10.4); RBC 2.61 XMIL (4.2-5.4)
[2017-05-02] MEDS ORDERED: CALMOSEPTINE OINTMENT TOP PRN (10:33)
--- NOTE | 2017-05-02 13:26 | PROGRESS NOTE ---
DATE: 05/02/2017 SUBJECTIVE: Today, Ms. Wade refers to be doing fine. According to her, her nausea has improved, but her diarrhea is still ongoing. She had about 4-5 bowel movements yesterday and so far during the day she has gotten two. OBJECTIVE: Vital signs: Blood pressure is 117/62, pulse of 107, respirations 23, temperature 98.4 degrees. General: Ms. Wade is a 57-year-old female. She was sitting up in the bed, not seemingly distress. HEENT: Mucosa is slightly dry. Anicteric. Acyanotic. Neck: Supple. Chest: Good air entry bilaterally. No crepitations. Abdomen: Soft. Extremities: No pedal edema. Central Nervous System: Patient is awake, alert, and oriented. LABORATORY AND IMAGING: WBC is 7.89, hemoglobin is 7.4, platelet count of 30,000. Chemistries reviewed and completely unremarkable. There was a brain MRI done, which shows no evidence of intracerebral metastatic disease. There is diffuse meningeal enhancement. This is probably related to the metastatic disease throughout the calvarium. Patient's microbiology for Clostridium difficile toxin has come back positive and she is currently in contact isolation. ASSESSMENT: 1. Intractable nausea and vomiting. Improved. 2. Clostridium difficile colitis. Patient is currently on metronidazole and seems to be improving. Will add lactobacillus, as well. 3. Metastatic ER positive, [place] positive, and HER2 negative left breast cancer with extensive metastasis to bone. 4. Chronic thrombocytopenia secondary to bone marrow invasion. 5. Hypothyroidism. 6. Hypertension. Stable. In general, I think Ms. Wade is relatively stable. Nausea and vomiting have improved. Diarrhea is still ongoing, but is slowing down. We will continue with the current metronidazole for a total of 14 days of Clostridium difficile therapy. I think by tomorrow, if the diarrhea has significantly improved, we might be able to discharge Ms. Wade. cc: MD Jeri La MD
--- NOTE | 2017-05-02 16:44 | CONSULTATION ---
DATE OF CONSULTATION: 05/02/2017 REQUESTING: Consulting requested by the Hospitalist Service. Consultation is for breast cancer, patient known to us. HISTORY OF PRESENT ILLNESS: Ms. Wade is a 57-year-old female, who is known to us as we are currently treating her for stage IV breast cancer with diffuse bony involvement , including bone marrow involvement. The patient was recently in our office to be evaluated to receive further weekly Taxol chemotherapy treatments. At that time, she reported about a week of nausea, vomiting and diarrhea. She is also having increased weakness and some dizziness. CT of the head was done at that time which showed her to have a nodular density associated with an epididymal lining of the posterior aspect of the right lateral ventricle. An MRI was recommended. The patient re- presented to our office on 05/01 still complaining of her previous symptoms, but was increasingly having weakness and a decline in performance status. We are trying to get the MRI as an outpatient during that time. It was decided that the patient need to be admitted for further evaluation and treatment. MRI has been completed at this point. Patient reports that overall she is feeling some better. She has been getting aggressive hydration with antiemetics. PAST MEDICAL HISTORY: 1. Metastatic breast cancer. 2. Hypothyroidism. 3. Chronic nausea and vomiting. 4. Hypertension. 5. Morbid obesity. 6. Anemia and thrombocytopenia. SURGICAL HISTORY: 1. Status post cholecystectomy. 2. Status post port placement on the right. 3. Cholecystectomy. 4. Port placement on the right. 5. Left mastectomy with lymph node dissection. SOCIAL HISTORY: Patient currently lives with her . 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 She denies any tobacco, alcohol or drug use. FAMILY HISTORY: Patient denies any family history of cancer. She does have a family history positive for cardiovascular disease and thyroid disease. REVIEW OF SYSTEMS: A 12 point review of systems has been completed and is negative except for what was expressed in the HPI. PHYSICAL EXAMINATION: Vital Signs: Temperature 98.2 degrees, heart rate 95, respirations 20, blood pressure 115/68, O2 saturation 95% on room air. General: female, sitting up in a hospital chair staring out the window. No one is at bedside with the patient today. Head: Appears to be normocephalic, atraumatic. Eyes: Pupils equal, round, reactive. Ears, nose, throat, neck and mouth: Oral mucosa appears to be normal. Trachea is midline. Gross auditory acuity is intact. Cardiovascular: S1-S2 heard. No murmurs, gallops, rubs appreciated. Respiratory: Chest clear to auscultation bilaterally. Normal respiratory effort. Gastrointestinal: Abdomen is obese. Nontender, nondistended. Positive bowel sounds. Musculoskeletal: No obvious bony abnormalities. Extremities: Trace bilateral lower extremity edema noted. Neurologic: Patient is alert and oriented x3 with no focal motor deficits noted. LABORATORY STUDIES: White blood cells are 7.89, hemoglobin 7.4, hematocrit 23.7 , platelets 30,000. Sodium 141, potassium 3.7, chloride 105, CO2 26, BUN 10, creatinine 0.7 , glucose 107, alkaline phosphatase is 208. IMAGING: Brain MRI shows no evidence of intracerebral metastatic disease. Diffuse meningeal enhancement. This is probably related to the metastatic disease throughout the calvarium. ASSESSMENT: 1. Metastatic breast cancer. Patient is currently receiving Taxol weekly chemotherapy. She is due for cycle #5 on 04/27/2017. Her last treatment was held due to her symptoms of nausea, vomiting, diarrhea, fatigue and weakness. There is concern that the patient now has meningeal involvement of her metastatic breast cancer. Brain MRI as per above. Plan at this time is to have a lumbar puncture to evaluate cerebrospinal fluid. However, patient's platelets are low. We will plan to go ahead and transfuse 2 units of platelets and then recheck tomorrow. Hopefully, she will be able to get the lumbar puncture completed tomorrow. The findings of the MRI and the treatment plan have been discussed with the patient today by myself and Dr. Perdomo. Treatment will remain on hold while we evaluate the patient further. 1. Intractable nausea, vomiting and diarrhea. The patient received IV antiemetics and IV hydration. Continue with both. She is being evaluated for Clostridium difficile as well as stool cultures. The patient has been found to have positive Clostridium difficile. She is now on Flagyl. Continue to monitor the patient. 2. Anemia. Patient will receive 1 unit of packed red blood cells today. We will continue to monitor and transfuse p.r.n. 3. Thrombocytopenia. In light of the fact that we are trying to get lumbar punctures as previously mentioned, we will go ahead and transfuse 2 units of platelets today. Recheck in the morning. 4. Fatigue and weakness. Likely secondary to diarrhea and dehydration. Continue IV fluids. Dictated by DEEJAY Lujan for Jeri Perdomo MD cc: Jeri Perdomo MD I have seen and examined the patient and agree with the above A/P. Jeri Perdomo MD [facility]
[2017-05-02] MEDS: CULTURELLE PO SCH (20:56)
[2017-05-02] MEDS: NORCO-10 PO PRN (23:18)
[2017-05-03] MEDS: FLAGYL PO SCH ×3 (05:52→22:53)
[2017-05-03] MEDS: NS 1,000 ML IV SCH ×4 (05:56→19:48)
[2017-05-03 07:32] LABS: HEMATOCRIT 24.5 % (37.0-47.0); HEMOGLOBIN 7.7 g/dL (12.0-16.0); MCH 28.7 PG (27-31); MCHC 31.4 g/dL (33-37); MCV 91.4 FL (81-99); MPV 9.3 FL (7.4-10.4); RBC 2.68 XMIL (4.2-5.4)
[2017-05-03 07:41] LABS: AGAP 12; BUN 9 mg/dL (8-22); CALCIUM 8.3 mg/dL (8.8-10.2); CHLORIDE 106 mmol/L (98-107); COSMO 284; POTASSIUM 3.5 mmol/L (3.5-5.1); SODIUM 143 mmol/L (136-145); TCO2 25 mmol/L (25-35)
[2017-05-03] MEDS: ATIVAN PO PRN (10:03)
[2017-05-03] MEDS: CULTURELLE PO SCH ×2 (10:03→22:53)
--- NOTE | 2017-05-03 11:35 | Diag Imaging Result Doc PS360 ---
LUMBAR PUNCTURE W/O FLUORO GUIDE - 05/03/2017 INDICATION: met breast cancer with n/v/AWAD, abnl meningeal chgs TECHNIQUE: The risks and benefits of the procedure were discussed with the patient. All questions were answered. Written and verbal informed consent was obtained. Overlying skin was prepped and draped in sterile fashion. Anesthesia was achieved with injection of 10 cc of 1% lidocaine. Total fluoroscopy time was one minute 56 seconds. 173 images were obtained. COMPARISON: None FINDINGS: Lumbar puncture was performed at L3-L4. About 2.5 cc of CSF could be removed. Then, no further flow was obtained. The CSF was clearly blood tinged. The patient reported no symptoms from the procedure. IMPRESSION: Successful and uncomplicated fluoroscopic guided lumbar puncture. Electronically signed by Neil Morfin 05/03/2017 11:33 AM
--- NOTE | 2017-05-03 12:03 | PROGRESS NOTE ---
DATE: 05/03/2017 SUBJECTIVE: Today, Ms. Wade referred to be doing a lot better. Vomiting, nausea, and diarrhea have all improved. She was evaluated yesterday and there is an order to do an LP which she just did. OBJECTIVE: Vital Signs: Blood pressure is 142/59, pulse is 108, respirations are 27, temperature is 97.9 degrees. General Examination: Ms. Wade is a 57-year-old, female. She is in bed and does not seem to be in any remarkable distress. HEENT: Mucosa is pink and moist. Anicteric. Acyanotic. Neck: Supple. Chest: Clear. Cardiovascular: Regular rate and rhythm. Abdomen: Soft. Extremities: No pedal edema. 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 There is no focal neurological deficit. The patient has the right eye slightly protruding but there is no pain on eye movement and there is no diplopia. The patient has normal pupillary reflex and her visual field testing is normal. Laboratory Data: WBC is 7.73, hemoglobin is 7.4, platelet count is 83,000. Of note, patient got 2 units of platelet transfused and 1 PRBC transfused. Chemistry is reviewed. It is completely normal. I did review again the MRI report from 3 days ago. There is no evidence of intracerebral metastatic disease but there is diffuse meningeal enhancement. This is probably related to metastatic disease throughout the calvarium. ASSESSMENT: 1. Intractable nausea and vomiting, resolved. 2. Clostridium difficile colitis. Diarrhea is also resolved. Patient will need to be on metronidazole for 13 days of therapy. 3. History of breast cancer. ER positive, [place] positive, and HER2 negative with bone metastasis even to the calvarium and also leptomeningeal enhancement as per the MRI report. Patient follows up with Dr. Perdomo. 4. Chronic thrombocytopenia secondary to bone marrow invasion. The patient has been given 2 units of platelet transfusion yesterday. Platelet count is a lot better today. 5. Hypothyroidism. We will continue with Synthroid. 6. Hypertension is improved. 7. Right eye mild exophthalmus. Vision is normal. Unsure the cause.Suspect is related to the brain disease. PLAN: Ms. Wade had an LP done today, I guess because of the enhancement of the meninges. Dr. Perdomo probably wants to make sure that the CSF does not have the disease. We will be pending final recommendations from hematology/oncology in that regard. As for her medical problem that brought her in, which is the nausea, vomiting, and the diarrhea, it is all resolved and whenever hematology/oncology is okay with them, patient can be discharged home. cc: MD Jeri La MD MTDD
[2017-05-03 14:19] LABS: GLUCOSE CSF 57 mg/dL (39-75)
[2017-05-03 14:53] LABS: APPEARANCE CLEAR
[2017-05-03 14:54] LABS: DIFF NEEDED? YES; WBC BF 10 /cumm
[2017-05-03 14:55] LABS: RBC BF 2395 /cumm
[2017-05-03 15:17] LABS: MONOS 86 %; POLYS 14 %
--- NOTE | 2017-05-03 16:24 | PROGRESS NOTE ---
DATE: 05/03/2017 SUBJECTIVE: Ms. Wade just got back from a lumbar puncture. She reports that overall she is feeling okay. OBJECTIVE: Vital Signs: Temperature 97.9 degrees, heart rate 108, respirations 23, blood pressure 142/59, O2 saturation 91% on room air. Labs: White blood cells 7.73 , hemoglobin 7.7, hematocrit 24.5, platelets 83,000. PHYSICAL EXAMINATION: Cardiovascular: S1, S2 heard. No murmurs, gallops, rubs appreciated. Respiratory: Clear to auscultation bilaterally. Normal respiratory effort. Gastrointestinal: Abdomen is obese. Positive bowel sounds. Nontender. Nondistended. Musculoskeletal: Edema in bilateral lower extremities. Neurologic: Patient is alert and oriented. ASSESSMENT AND PLAN: 1. Metastatic breast cancer. Treatment is currently on hold. There is suspicion that the patient may have some meningeal involvement of her metastatic breast cancer. She is now status post lumbar puncture. Testing is currently pending. Will follow up on those results as they become available. 2. Intractable nausea, vomiting. This has improved. Continue IV antiemetics and IV hydration. 3. Diarrhea. Patient is positive for C. difficile. She is currently taking Flagyl. Patient reports she has not had any diarrhea for today. Continue to monitor. Continue current treatment. 4. Anemia. Hemoglobin has improved after a unit of packed red blood cells yesterday. Continue to monitor and transfuse p.r.n. 5. Thrombocytopenia. Patient's platelet count has also improved after 2 units of platelets yesterday. Continue to monitor. 6. Fatigue and weakness. Improving. Continue IV hydration. Dictated by DEEJAY Lujan for Jeri Perdomo MD cc: Jeri Perdomo MD I have seen and examined the patient and agree with the above A/P. Jeri Perdomo MD MTDD
[2017-05-03] MEDS: NORCO-10 PO PRN (17:48)
[2017-05-04] MEDS: NS 1,000 ML IV SCH ×3 (04:09→21:01)
[2017-05-04] MEDS: FLAGYL PO SCH ×3 (05:40→23:24)
[2017-05-04 07:17] LABS: HEMATOCRIT 23.7 % (37.0-47.0); HEMOGLOBIN 7.4 g/dL (12.0-16.0); MCHC 31.2 g/dL (33-37); MCV 89.8 FL (81-99); MPV 9.6 FL (7.4-10.4); RBC 2.64 XMIL (4.2-5.4)
[2017-05-04 07:19] LABS: INR 1.3; PROTIME 13.9 Seconds (9.2-11.7)
[2017-05-04 07:47] LABS: AGAP 11; BUN 8 mg/dL (8-22); CALCIUM 7.6 mg/dL (8.8-10.2); CHLORIDE 110 mmol/L (98-107); COSMO 283; POTASSIUM 2.9 mmol/L (3.5-5.1); SODIUM 143 mmol/L (136-145); TCO2 22 mmol/L (25-35)
[2017-05-04] MEDS ORDERED: KLOR-CON PO ONE (08:49)
[2017-05-04] MEDS: CULTURELLE PO SCH ×2 (11:30→23:25)
[2017-05-04] MEDS ORDERED: EFFEXOR XR PO ONE (12:10)
[2017-05-04] MEDS: ATIVAN PO PRN (18:22)
[2017-05-04] MEDS: NORCO-10 PO PRN (23:24)
[2017-05-04] MEDS: PHENERGAN IV PRN (23:24)
[2017-05-05] MEDS: NS 1,000 ML IV SCH (06:19)
[2017-05-05] MEDS: FLAGYL PO SCH ×3 (06:19→23:52)
[2017-05-05] MEDS: PHENERGAN IV PRN ×4 (06:19→23:52)
[2017-05-05] MEDS: CULTURELLE PO SCH ×2 (09:52→23:52)
[2017-05-05] MEDS: EFFEXOR XR PO SCH (09:53)
[2017-05-05 10:12] LABS: EOS# 0.15 X1000 (0.0-0.7); EOS% 1.4 % (0.0-10.0); HEMATOCRIT 29.7 % (37.0-47.0); HEMOGLOBIN 9.7 g/dL (12.0-16.0); IMM GRAN# 2.05 X1000 (0.0-0.04); IMM GRAN% 19.6 % (0.0-0.5); LYMPH# 1.34 X1000 (1.2-3.4); LYMPH% 12.8 % (20.5-51.1); MANUAL DIFF NEEDED? YES; MCH 28.9 PG (27-31); MCHC 32.7 g/dL (33-37); MCV 88.4 FL (81-99); MONO# 1.75 X1000 (0.11-0.59); MONO% 16.7 % (1.7-9.3); MPV 10.1 FL (7.4-10.4); NEUT% 46.5 % (42.2-75.2); PLT 58 X1000 (130-400); RBC 3.36 XMIL (4.2-5.4)
[2017-05-05 10:33] LABS: BANDS 26 % (0-1); BASO 2 % (0-1); EOS 4 % (1-10); LYMPHS 12 % (21-51); MONO 8 % (1-9); NRBC 1 % (0-0)
[2017-05-05 10:53] LABS: AGAP 14; ALBUMIN 3.1 g/dL (3.5-5.0); ALKALINE PHOSPHATASE 201 U/L (32-104); BUN 11 mg/dL (8-22); CALCIUM 8.8 mg/dL (8.8-10.2); CHLORIDE 105 mmol/L (98-107); COSMO 285; GOT 25 U/L (10-30); GPT 9 U/L (10-36); POTASSIUM 3.9 mmol/L (3.5-5.1); SODIUM 143 mmol/L (136-145); TCO2 24 mmol/L (25-35); TOTAL BILIRUBIN 0.73 mg/dL (0.20-1.00); TOTAL PROTEIN 6.3 g/dL (6.3-8.3)
[2017-05-05] MEDS: NORCO-10 PO PRN ×3 (12:14→23:52)
--- NOTE | 2017-05-05 12:57 | Diag Imaging Result Doc PS360 ---
EXAM: ANGIOGRAM/PULMONARY ARTERIES HISTORY: SOB/Tachycardia/R/O PE TECHNIQUE: Dose reduction protocol. COMPARISON: 12/16/2016 FINDINGS: No pleural effusions. Mild cardiomegaly. No thoracic aortic aneurysm or dissection. No large central filling defects in the pulmonary arteries. Questionable tiny filling defects in the right lower lobe posterior pulmonary arteries although this is seen on only two images and there is motion at this level. No enlarged mediastinal lymph nodes. There are several calcified mediastinal and left hilar lymph nodes. There are groundglass infiltrates bilaterally. No bronchiectasis. IMPRESSION: 1.Cardiomegaly with bilateral groundglass infiltrates 2.No large central pulmonary emboli. Indeterminate for tiny peripheral pulmonary emboli in the right lower lobe. Electronically signed by Richard Terrell 05/05/2017 12:55 PM
--- NOTE | 2017-05-05 13:04 | PROGRESS NOTE ---
DATE: 05/04/2017 SUBJECTIVE: Ms. Wade reports that she is doing okay. Her sister is at bedside and reports that the patient has not been eating as much as previously. No other complaints. The patient reports her diarrhea has resolved. OBJECTIVE: Vital Signs: Temperature 97.8 degrees, heart rate 102, respirations 20, blood pressure 133/63, O2 saturation 94% on room air. LABORATORY: White blood cell count 7.19, hemoglobin 7.4, hematocrit 23.7, platelets 66,000. Sodium 143, potassium 2.9, chloride 110, CO2 of 22, BUN 8, creatinine 0.5, glucose 93. PHYSICAL EXAMINATION: Cardiovascular: Regular rhythm. Tachycardia noted. S1 and S2. Respiratory: Chest is clear auscultation bilaterally. Gastrointestinal: Abdomen is soft, nontender, nondistended. Extremities: Patient has 1+ bilateral edema noted. ASSESSMENT AND PLAN: 1. Metastatic breast cancer. There is concern that the patient now has meningeal involvement of her breast cancer. She has undergone a lumbar puncture. Cytology and cell count and cultures are currently pending on her cerebrospinal fluid. Patient's treatment is currently on hold. 2. Anemia, believed to be caused by her breast cancer. Patient has bone marrow involvement of her breast cancer. Go ahead and transfuse 2 units of packed red blood cells today. 3. Nausea and vomiting. This has resolved at this point. Continue IV hydration. 4. Diarrhea. The patient tested positive for Clostridium difficile. She is currently taking p.o. Flagyl. Her diarrhea has also resolved. 5. Depression. The patient is reporting loss of appetite, increased fatigue, and lack of motivation. It appears that she is depressed. Will go ahead and start her on Effexor ER 37.5 mg daily. DISPOSITION: The patient has asked for home health. If anything, she will need some physical therapy to come out to her home. Dictated by DEEJAY Lujan for Jeri Perdomo MD cc: Jeri Perdomo MD I have seen and examined the patient and agree with the above A/P. Jeri BUSH
--- NOTE | 2017-05-05 14:33 | DISCHARGE SUMMARY ---
ADMISSION DATE: 05/01/2017 DISCHARGE DATE: 05/04/2017 CONSULTATIONS: Dr. Perdomo of Hematology/Oncology. PROCEDURES: 1. Brain MRI showed no evidence of intracerebral metastatic disease, diffuse meningeal enhancement probably related to metastatic disease throughout the calvarium. 2. Abdominal x-ray showed osteoblastic metastatic disease. No evidence of acute intra-abdominal disease. 3. Lumbar puncture performed on 05/03/2017. DISCHARGE DIAGNOSES: 1. Metastatic breast cancer. Treatment currently on hold. Suspicion if patient may have some meningeal involvement of her metastatic breast cancer, status post lumbar puncture testing currently pending. Will follow up with these results with Dr. Jeri Perdomo. 2. Intractable nausea and vomiting. Improved. 3. Diarrhea, positive for Clostridium difficile. Currently on Flagyl. 4. Anemia. Hemoglobin and hematocrit improved after a unit of packed red blood cells. Stable. 5. Thrombocytopenia. Platelet counts improved after 2 units of platelets. Stable. 6. Fatigue and weakness. Improved. 7. Hypothyroidism. Continue Synthroid. 8. Hypertension. Improved. HOSPITAL COURSE: Ms. Wade is a 57-year-old female who is currently being treated for stage IV breast cancer with diffuse bony involvement including bone marrow. Patient recently received her weekly Taxol chemotherapy treatment. In Dr. Perdomo's office. At that time, she reported a week of nausea, vomiting and diarrhea with increased weakness and dizziness. CT of the head was done that showed nodular density associated with epididymal aligning of the posterior aspect of the right lateral ventricle. She then underwent an MRI that was recommended that showed no evidence of intracerebral metastasis disease but diffuse meningeal enhancement. She underwent a lumbar puncture for this, those results are still pending. She will follow those up with Dr. Jeri Perdomo. Her nausea, vomiting have resolved with antiemetics and IV hydration. In reference to her anemia and thrombocytopenia, she is status post 1 unit of PRBCs and 2 units of FFPs. Those are improved. Clinically the patient has improved. Her nausea and vomiting has resolved. She was positive for C difficile, so she will remain on Flagyl for a total of 14 days. She is appropriate for discharge home today. Vital signs at time of her discharge: Temperature is 97.8 degrees, heart rate 102, respiration of 20, blood pressure is 133/63, O2 is 94% on room air. DISCHARGE DIET: GI soft. DISCHARGE MEDICATIONS: Per Dr. Conway: 1. Aspirin 81 mg p.o. every morning. 2. Caltrate 600+ D 1200 mg p.o. daily. 3. Aranesp 500 mcg injected as directed. 4. Dexamethasone 4 mg p.o. b.i.d. 5. Folic acid 1 mg p.o. b.i.d. 6. Faslodex 500 mg IM as directed. 7. [place] 10/325, 1 each p.o. q.6 hours p.r.n. 8. Culturelle 1 each p.o. b.i.d. 9. Synthroid 50 mcg p.o. daily. 10. Ativan 0.5 mg p.o. q.8 hours p.r.n. 11. Reglan 5 mg p.o. as directed. 12. Flagyl 500 mg p.o. t.i.d. 13. Zofran 8 mg p.o. p.r.n. 14. Compazine 10 mg p.o. q.6 hours p.r.n. 15. Phenergan 12.5 mg p.o. q.6 hours p.r.n. 16. Valsartan-hydrochlorothiazide 320/25 mg tab 1 each p.o. daily. FOLLOWUP: Patient is being discharged home with her spouse. She does currently use an electric wheelchair. She will need to follow up with Dr. Perdomo for the results of her lumbar puncture as well as to continue to take her full course of p.o. antibiotics for her C difficile, and follow up with her primary care physician, Dr. Eusebio Luna, in 7-10 days. Patient can return to the ED for any worsening of symptoms. Discharge summary more than 30 minutes. Dictated by DINO Puri for Cristian Conway MD cc: MD Jeri La MD Brian R. James, MD
[2017-05-05] MEDS ORDERED: LASIX IV ONE (14:36)
--- NOTE | 2017-05-05 14:55 | PROGRESS NOTE ---
DATE: 05/05/2017 SUBJECTIVE: Today, Ms. Wade refers to be feeling very uncomfortable and having some difficulty breathing. Ms. Wade was actually discharged yesterday from medical standpoint, however, Heme/Onc kept the patient because, I think, of low hemoglobin and she was transfused a unit of blood yesterday and 2 of platelets. Subsequently, she says she has just been feeling extremely low and weak. OBJECTIVE: Vital Signs: Blood pressure is 160/78, pulse is about 110, respiration is about 22, and temperature is 97.5 degrees. General: Ms. Wade is a 57-year-old female. She is in bed, in mild respiratory distress. HEENT: Mucosa is pink and moist. Anicteric. Acyanotic. Neck is supple. Chest: Air entry is bilaterally reduced. You do not hear that much, I guess because of her body habitus. Cardiovascular: Tachycardic but no murmurs. No rubs. Abdomen is soft, nontender. Extremities: No pedal edema. 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 She knows where she is and follow some basic commands. LABORATORY DATA: WBC is 10.47, hemoglobin is 9.7, platelet count of 58,000. There are 26% of bands on the peripheral smear. Sodium is 143, potassium is 3.9, chloride is 105, bicarb is 24. Patient's current medications include lactobacillus and metronidazole for her Clostridium difficile which has completely resolved. ASSESSMENT: 1. Intractable nausea and vomiting, this has resolved. 2. Clostridium difficile colitis. Patient is on metronidazole. 3. History of breast cancer. 4. Chronic thrombocytopenia secondary to bone marrow invasion. 5. Hypothyroidism. 6. Hypertension. 7. Respiratory distress. This is something new that the patient did develop; my understanding is that it is from yesterday. 8. The patient is tachycardic and is having respiratory distress. She has an underlying malignancy, so I am concerned this could potentially be a pulmonary embolus or she might have developed some hospital-associated pneumonia. We are going to do a CT scan of the chest (CTA) to rule out the possibility of pulmonary embolus and also look at the lung parenchyma more closely. cc: MD Jeri La MD
--- NOTE | 2017-05-05 16:09 | PROGRESS NOTE ---
DATE: 05/05/2017 SUBJECTIVE: Ms. Wade is in the room with her sister and . She had some shortness of breath earlier today. OBJECTIVE: Vital signs: Temperature 98.6 degrees, heart rate 112, respirations 18, blood pressure 164/78, O2 saturation 99% on room air. LABORATORY: White blood cells 10.47, hemoglobin 9.7, hematocrit 29.7, platelets 58,000. Sodium 143, potassium 3.9, chloride 105, CO2 24, BUN 11, creatinine 0.6, glucose 109. LABS AND STUDIES: A CT angio shows cardiomegaly of bilateral ground-glass infiltrates. No large central pulmonary emboli. Indeterminate for tiny peripheral pulmonary emboli in the right lower lobe. PHYSICAL EXAMINATION: Cardiovascular: Tachycardia noted with regular rhythm. Respiratory: Lungs are clear. No rhonchi, rales, or wheezing noted. Abdomen: Soft, nontender, nondistended. Extremities: Bilateral lower extremity trace edema. ASSESSMENT AND PLAN: 1. Metastatic breast cancer. The patient now believed to have leptomeningeal involvement. The cerebral spinal fluid is consistent with the findings. Discussed with patient and her family today. Plan at this time is to get intrathecal methotrexate on Monday. She will then be later referred for Omm[place] placement. 2. Some respiratory distress this morning. See CT angio as per above. 3. Diarrhea. Patient has clostridium difficile. Diarrhea has resolved. Continue Flagyl and probiotics. 4. Depression. Patient continue on her Effexor. She is also receiving Ativan p.r.n. 5. Pain. Currently well controlled with [place]. Dictated by DEEJAY Lujan for Jeri Perdomo MD cc: Jeri Perdomo MD I have seen and examined the patient and agree with the above A/P. Jeri BUSH
[2017-05-06] MEDS: FLAGYL PO SCH ×3 (06:24→22:16)
[2017-05-06] MEDS: PHENERGAN IV PRN ×2 (06:24→22:16)
[2017-05-06] MEDS: NORCO-10 PO PRN ×2 (06:24→22:16)
[2017-05-06 06:49] LABS: BASO% 2.7 % (0.0-0.8); EOS# 0.15 X1000 (0.0-0.7); EOS% 1.4 % (0.0-10.0); HEMATOCRIT 28.9 % (37.0-47.0); HEMOGLOBIN 9.3 g/dL (12.0-16.0); IMM GRAN# 1.82 X1000 (0.0-0.04); LYMPH# 1.15 X1000 (1.2-3.4); LYMPH% 10.7 % (20.5-51.1); MANUAL DIFF NEEDED? YES; MCH 28.6 PG (27-31); MCHC 32.2 g/dL (33-37); MCV 88.9 FL (81-99); MONO# 1.89 X1000 (0.11-0.59); MONO% 17.7 % (1.7-9.3); MPV 9.6 FL (7.4-10.4); NEUT% 50.5 % (42.2-75.2); PLT 56 X1000 (130-400); RBC 3.25 XMIL (4.2-5.4)
[2017-05-06 06:58] LABS: AGAP 16; BUN 11 mg/dL (8-22); CALCIUM 8.1 mg/dL (8.8-10.2); CHLORIDE 102 mmol/L (98-107); COSMO 289; POTASSIUM 3.6 mmol/L (3.5-5.1); SODIUM 145 mmol/L (136-145); TCO2 27 mmol/L (25-35)
[2017-05-06 07:30] LABS: BANDS 8 % (0-1); LYMPHS 12 % (21-51); MONO 6 % (1-9); NRBC 2 % (0-0)
[2017-05-06] MEDS: EFFEXOR XR PO SCH (09:11)
[2017-05-06] MEDS: CULTURELLE PO SCH ×2 (09:11→22:16)
--- NOTE | 2017-05-06 13:42 | PROGRESS NOTE ---
DATE: 05/06/2017 SUBJECTIVE: Today, Ms. Wade refers to be relatively stable. She just thinks she is feeling more sick. OBJECTIVE: Vital signs: Blood pressure is 147/78, pulse of 107, respirations 20, temperature 97.3 degrees. General: Ms. Wade is a 57-year-old female. She was sitting up in the chair, not in any remarkable distress. HEENT: Mucosa pink and moist. Anicteric. Acyanotic. There is a mild exophthalmos of the right eye. Neck: Supple. Chest: Air entry is bilaterally reduced. I did not hear any crepitations or rhonchi. Cardiovascular: Regular rate and rhythm. No murmurs. Abdomen: Soft. Extremities: No pedal edema. Central Nervous System: Patient is awake and alert. LABORATORY DATA: WBC is 10.70, hemoglobin is 9.3, platelet count is 56,000. There is 8% of bands on the peripheral smear. There is 20% of myelocytes. There is 2% of nucleated RBC. There is 5% of atypical lymphocytes. IMAGING: A CTA of the lungs yesterday that we did to rule out a PE showed there was no large central pulmonary embolus. It was indeterminate for tiny peripheral pulmonary emboli in the right lower lobe. There was cardiomegaly with bilateral ground-glass infiltrates. ASSESSMENT: 1. Intractable nausea and vomiting. This was the main reason why the patient presented to the emergency department. This has resolved. 2. Clostridium difficile colitis. Patient had multiple episodes of diarrhea, but this has resolved since about 3 days ago. She is currently on metronidazole 500 q.8. She is going to complete a total of 14 days of antibiotics. 3. Chronic thrombocytopenia secondary to bone marrow invasion. Bone marrow invasion with possible myelodysplastic syndrome. Patient has very immature cells on the peripheral smear. Also has some nucleated RBCs. All are consistent with the fact that she has myelodysplastic changes. 4. Respiratory distress. A CTA showed mild tiny peripheral pulmonary emboli and also ground- glass opacities. I think patient did have some fluid, so we gave her some Lasix yesterday, and seems to have improved. Now, in terms of the tiny pulmonary emboli, the patient has a very low platelet count, which would make it a contraindication to use anticoagulation. We therefore did a Doppler ultrasound of the lower extremity to rule out a deep vein thrombosis, but from what I heard from the patient, this was negative. I am still waiting for the official report on the Doppler scan. 5. Hypothyroidism. Will continue with thyroid supplementation. 6. Metastatic breast cancer with leptomeningeal involvement. The patient had an MRI on admission, which shows leptomeningeal enhancement. There was an LP which was done and cytology was positive for malignancy. Patient has a very aggressive ER positive, HI positive metastatic breast cancer, for which she follows up with Dr. Perdomo. I think the overall prognosis is extremely poor. There is a plan to do intrathecal methotrexate and a port to be placed in the subdural space on Monday. Will therefore keep the patient until then for the procedure to be done, and then hopefully can discharge her home. cc: MD Jeri La MD
[2017-05-06] MEDS: COMPAZINE IV PRN (14:00)
--- NOTE | 2017-05-06 15:34 | Extremity Venous Study ---
PROCEDURE NAME: Venous U/S Bilateral Legs - 05/05/2017 REQUESTING PHYSICIAN: Dr. Conway. CNC ROUTER OPERATOR: Ayan. INDICATIONS: 1. Possible PE. 2. History of metastatic breast cancer. PROCEDURE: Bilateral lower extremity venous duplex and color flow imaging. EQUIPMENT: Playteau[employer] E9 ultrasound system with a 9 LD transducer. FINDINGS: Images of bilateral lower extremities deep venous systems were obtained in both sagittal and transverse planes. Doppler was used to evaluate veins for spontaneity, phasicity, respiratory excursion, and digital augmentation. RESULTS: Per the brewing technician's note, this was a limited study given the patient's morbid obesity and patient's pain level with inability to tolerate full procedure at this time. There is no superficial or deep venous thrombosis noted. INTERPRETATION: Limited study but no obvious superficial or deep venous thrombosis noted to bilateral lower extremities. cc: MD Cristian Snyder MD Heather Shah, MD
[2017-05-06] MEDS: ATIVAN PO PRN (22:16)
[2017-05-07] MEDS: COMPAZINE IV PRN (01:39)
[2017-05-07] MEDS: MORPHINE IV PRN ×3 (01:58→16:07)
[2017-05-07] MEDS: FLAGYL PO SCH ×3 (06:32→21:35)
[2017-05-07] MEDS: PHENERGAN IV PRN (06:32)
[2017-05-07] MEDS: NORCO-10 PO PRN (06:32)
[2017-05-07] MEDS: EFFEXOR XR PO SCH (08:30)
[2017-05-07] MEDS: CULTURELLE PO SCH ×2 (08:30→21:35)
[2017-05-07] MEDS: ZOFRAN IV PRN (08:33)
[2017-05-07 08:39] LABS: AGAP 14; BUN 13 mg/dL (8-22); CALCIUM 8.5 mg/dL (8.8-10.2); CHLORIDE 104 mmol/L (98-107); COSMO 290; POTASSIUM 3.4 mmol/L (3.5-5.1); SODIUM 146 mmol/L (136-145); TCO2 28 mmol/L (25-35)
[2017-05-07 08:42] LABS: BASO% 2.9 % (0.0-0.8); EOS# 0.14 X1000 (0.0-0.7); EOS% 1.2 % (0.0-10.0); HEMATOCRIT 29.3 % (37.0-47.0); HEMOGLOBIN 9.4 g/dL (12.0-16.0); IMM GRAN# 1.89 X1000 (0.0-0.04); IMM GRAN% 16.8 % (0.0-0.5); LYMPH# 1.26 X1000 (1.2-3.4); LYMPH% 11.2 % (20.5-51.1); MANUAL DIFF NEEDED? YES; MCH 28.9 PG (27-31); MCHC 32.1 g/dL (33-37); MCV 90.2 FL (81-99); MONO# 1.97 X1000 (0.11-0.59); MONO% 17.6 % (1.7-9.3); MPV 10.8 FL (7.4-10.4); NEUT% 50.3 % (42.2-75.2); PLT 51 X1000 (130-400); RBC 3.25 XMIL (4.2-5.4)
[2017-05-07 10:34] LABS: BANDS 2 % (0-1); EOS 1 % (1-10); LYMPHS 8 % (21-51); MONO 6 % (1-9); NRBC 4 % (0-0); POLYCHROM OCCASIONAL
--- NOTE | 2017-05-07 10:41 | Diag Imaging Result Doc PS360 ---
EXAM: CHEST-PORTABLE HISTORY: dyspnea TECHNIQUE: Portable upright AP COMPARISON: 05/01/2017 FINDINGS: The bones are sclerotic. The heart remains mildly enlarged. No change in the right jugular line. No pneumothorax. Mild increased interstitial markings in the lower left lung. No pleural effusions identified. IMPRESSION: 1. Sclerotic bones consistent with diffuse bony metastases 2. Mild cardiomegaly with minimal pulmonary edema Electronically signed by Richard Terrell 05/07/2017 10:39 AM
[2017-05-07] MEDS ORDERED: LASIX IV ONE (12:26)
--- NOTE | 2017-05-07 15:55 | PROGRESS NOTE ---
DATE: 05/07/2017 SUBJECTIVE: Today Ms. Wade refers to be doing a little better. Still has a little difficulty breathing but otherwise is doing a lot better. OBJECTIVE: Vital signs: Blood pressure is 142/78, pulse of 117, respirations 21, temperature 97.9 degrees. Patient is saturating 91% on room air. General: Ms. Wade is a 57-year-old, morbidly obese, female. She was sitting up in a chair. Not in any distress. HEENT: Mucosa is pink and moist. Anicteric. Acyanotic. Neck: Supple. Chest: Air entry is bilaterally reduced with a few bibasilar crepitations. Cardiovascular: Regular rate and rhythm. Abdomen: Soft, nontender. Extremities: No pedal edema. DIRECT MAIL COORDINATOR: Patient is awake, alert, oriented. LABORATORY DATA: WBC is 11.22, hemoglobin is 9.4, platelet count of 51,000. There are 19% of myelocytes. There are 4% of nucleated RBCs. Chemistry is reviewed. Sodium is 146, potassium is 3.4. A chest x-ray was done this morning which shows sclerotic bone consistent with diffuse bony metastases. There is mild cardiomegaly with minimal pulmonary edema. ASSESSMENT: 1. Intractable nausea and vomiting, improved. 2. Clostridium difficile colitis. Patient is on metronidazole. Today is day 6 on treatment and she is to complete a total of 14 days. 3. Chronic thrombocytopenia secondary to bone marrow invasion. 4. Metastatic breast cancer to bone and leptomeningeal enhancement. 5. Leptomeningeal breast cancer metastases. 6. Hypoxemic respiratory distress secondary to pulmonary edema. We will give the patient another dose of Lasix to see if it improves slightly. We know the patient has a very tiny indeterminate right lower lobe possible PE. However, a Doppler ultrasound was completely negative so we will not treat this. PLAN: So in general I think Ms. Wade is stable. She is more alert and more conversational this morning. She is pending methotrexate intrathecal treatment tomorrow and also placement of subdural report for subsequent chemotherapy. We will give her a dose of Lasix to help with some of the pulmonary edema. cc: MD Jeri La MD
[2017-05-08] MEDS: SODIUM CHLORIDE 0.9% INJ PRN ×2 (05:46→22:04)
[2017-05-08] MEDS: PHENERGAN IV PRN ×3 (05:46→22:04)
[2017-05-08] MEDS: FLAGYL PO SCH ×2 (06:03→19:41)
[2017-05-08 06:36] LABS: BASO% 2.6 % (0.0-0.8); EOS# 0.17 X1000 (0.0-0.7); EOS% 1.7 % (0.0-10.0); HEMATOCRIT 30.2 % (37.0-47.0); HEMOGLOBIN 9.6 g/dL (12.0-16.0); IMM GRAN# 1.16 X1000 (0.0-0.04); IMM GRAN% 11.6 % (0.0-0.5); LYMPH# 1.09 X1000 (1.2-3.4); LYMPH% 10.9 % (20.5-51.1); MANUAL DIFF NEEDED? YES; MCH 28.8 PG (27-31); MCHC 31.8 g/dL (33-37); MCV 90.7 FL (81-99); MONO# 1.28 X1000 (0.11-0.59); MONO% 12.8 % (1.7-9.3); MPV 9.8 FL (7.4-10.4); NEUT% 60.4 % (42.2-75.2); PLT 45 X1000 (130-400); RBC 3.33 XMIL (4.2-5.4)
[2017-05-08 07:06] LABS: AGAP 15; BUN 15 mg/dL (8-22); CALCIUM 8.3 mg/dL (8.8-10.2); CHLORIDE 99 mmol/L (98-107); COSMO 290; POTASSIUM 3.3 mmol/L (3.5-5.1); SODIUM 144 mmol/L (136-145); TCO2 30 mmol/L (25-35)
--- NOTE | 2017-05-08 07:13 | Diag Imaging Result Doc PS360 ---
CHEST-PORTABLE - 05/08/2017 INDICATION: dyspnea TECHNIQUE: COMPARISON: 05/07/2017 FINDINGS: Stable right chest port in good position. Lung volumes remain severely low. There is some bronchial vascular crowding centrally but no substantial infiltrates. Stable osteoblastic skeletal metastatic disease diffusely. IMPRESSION: Mildly low lung volumes but otherwise no acute disease. No significant change from prior. Electronically signed by Neil Morfin 05/08/2017 7:10 AM
[2017-05-08 07:46] LABS: BANDS 16 % (0-1); HYPOCHROM 2+; LYMPHS 2 % (21-51); MONO 14 % (1-9)
[2017-05-08] MEDS: MORPHINE IV PRN (08:50)
[2017-05-08] MEDS: ZOFRAN IV PRN (08:50)
[2017-05-08] MEDS: CULTURELLE PO SCH (08:52)
[2017-05-08] MEDS: EFFEXOR XR PO SCH (08:52)
--- NOTE | 2017-05-08 18:42 | PROGRESS NOTE ---
DATE: 05/08/2017 SUBJECTIVE: Today Ms. Wade refers to be extremely nauseous with occasional dry heaves and vomiting. She was expecting to see Dr. Perdomo but has not seen her this morning and both she and the family are upset. OBJECTIVE: Vital signs: Blood pressure is 146/69, pulse of 118, temperature is 98.0 degrees, respirations 14. The patient is saturating 98% on 3 L of oxygen. General: Ms. Wade is a 57- year-old female. She was actually sitting up in a chair. Not in any remarkable distress. HEENT: Mucosa is pink and moist. Anicteric. Acyanotic. Neck: Supple. Chest: Air entry is bilaterally reduced. A few bibasilar crepitations. Cardiovascular: Regular rate and rhythm. I did not appreciate any murmurs or rubs. Abdomen: Soft, nontender. No hepatosplenomegaly. Extremities: No pedal edema. PACKAGE CHECKER: Patient is awake and alert. No focal neurological deficit. LABORATORY DATA: WBC is 9.97, hemoglobin is 9.6, platelet count of 45,000. There is 16% of bands on the peripheral smear. Sodium is 144, potassium is 3.3, chloride is 99, bicarbonate is 30. A chest x-ray which was done today shows mildly low lung volumes but otherwise no acute disease. No significant change from before. ASSESSMENT: 1. Intractable nausea and vomiting. I think this is probably related to leptomeningeal disease. 2. Clostridium difficile colitis. Diarrhea has resolved. Patient is currently on metronidazole. Today is day 7 on treatment. She will complete a total of 14 days. 3. Chronic thrombocytopenia. Numbers are getting worse. We think this is related to bone marrow invasion. 4. Metastatic breast cancer to bone and leptomeningeal involvement. 5. Leptomeningeal breast cancer metastases. Patient has been hold that she is going to get intrathecal chemo today and a port to be placed in the subdural space for subsequent chemotherapy. We waiting on a hematology/oncology evaluation today for further medical care. 6. Hypoxemic respiratory distress. This is significantly improved. We think it was a combination of pulmonary edema and mild indeterminate PE. However, a Doppler ultrasound of the lower extremity has been negative. Patient is not on any anticoagulation for the presumed PE because of low platelets and I have discussed this with her oncologist and she is in agreement. PLAN: So in general, today Ms. Wade seems more nauseous and has hiccups which we will treat symptomatically. We are pending further hematology/oncology evaluation as to when she is going to get the intrathecal chemotherapy. I think Ms. Wade has a very poor prognosis. She is probably going to be in hospital for a little bit more. Will replace her low potassium. cc: MD Jeri La MD
[2017-05-09] MEDS: CULTURELLE PO SCH ×3 (00:35→20:55)
[2017-05-09] MEDS: FLAGYL PO SCH ×4 (00:35→20:55)
[2017-05-09 07:41] LABS: AGAP 10; BUN 14 mg/dL (8-22); CALCIUM 8.8 mg/dL (8.8-10.2); CHLORIDE 100 mmol/L (98-107); COSMO 287; POTASSIUM 3.1 mmol/L (3.5-5.1); SODIUM 143 mmol/L (136-145); TCO2 33 mmol/L (25-35)
[2017-05-09 07:52] LABS: EOS# 0.21 X1000 (0.0-0.7); EOS% 2.2 % (0.0-10.0); HEMATOCRIT 28.3 % (37.0-47.0); HEMOGLOBIN 8.9 g/dL (12.0-16.0); IMM GRAN# 1.13 X1000 (0.0-0.04); IMM GRAN% 12.1 % (0.0-0.5); LYMPH# 0.99 X1000 (1.2-3.4); LYMPH% 10.6 % (20.5-51.1); MANUAL DIFF NEEDED? YES; MCH 28.7 PG (27-31); MCHC 31.4 g/dL (33-37); MCV 91.3 FL (81-99); MONO# 1.22 X1000 (0.11-0.59); MPV 10.1 FL (7.4-10.4); NEUT% 60.1 % (42.2-75.2); PLT 39 X1000 (130-400)
[2017-05-09 08:34] LABS: BANDS 28 % (0-1); LYMPHS 4 % (21-51); MONO 6 % (1-9)
[2017-05-09] MEDS: EFFEXOR XR PO SCH (08:52)
[2017-05-09] MEDS: PHENERGAN IV PRN ×3 (11:30→20:55)
[2017-05-09] MEDS: POTASSIUM CHLORIDE 20 MEQ/SWI 20 MEQ/100 ML IVPB IV SCH ×2 (12:24→13:57)
[2017-05-09] MEDS: ZOFRAN IV PRN (14:46)
[2017-05-09] MEDS: SODIUM CHLORIDE 0.9% INJ PRN (20:55)
[2017-05-10] MEDS: SODIUM CHLORIDE 0.9% INJ PRN ×3 (02:34→15:25)
[2017-05-10] MEDS: PHENERGAN IV PRN ×3 (02:34→15:25)
--- NOTE | 2017-05-10 05:32 | PROGRESS NOTE ---
DATE: 05/09/2017 SUBJECTIVE: Patient has no focal complaints. She seems very weak, even with minimal exertion. OBJECTIVE: Vital Signs: Blood pressure 144/71, heart rate of 115, 98% on 2 L. Afebrile, respiratory rate of 14. Cardiovascular: Regular rate and rhythm. Pulmonary: Bilateral breath sounds clear to auscultation. GI: Soft, nontender, nondistended. Bowel sounds are positive. Laboratory Data: White count 9, hemoglobin and hematocrit of 8 and 28, platelets of 39,000. Potassium 3.1. CSF total protein was actually 469. PROBLEM LIST: 1. Breast cancer. We will continue to follow. Hematology/oncology was managing. 2. Nausea and vomiting. We will continue subjective treatment. 3. Clostridium difficile colitis, on Flagyl. She is on day 8 of 14. 4. Thrombocytopenia. This seems to be getting worse. We will continue to monitor. 5. Leptomeningeal breast cancer metastasis. She has been on intrathecal chemotherapy. She has high protein in her cerebrospinal fluid. We will continue to follow. 6. Hypoxia. There is concern of a volume overload. We will continue to monitor. PLAN: We will continue to follow, holding anticoagulation because of thrombocytopenia. DISPOSITION: Planning to stabilize and get home. We will continue to follow very closely. cc: MD Jeri Lowry MD
[2017-05-10] MEDS: FLAGYL PO SCH ×2 (06:01→15:04)
[2017-05-10 07:12] LABS: HEMATOCRIT 27.7 % (37.0-47.0); HEMOGLOBIN 8.7 g/dL (12.0-16.0); MCH 29.3 PG (27-31); MCHC 31.4 g/dL (33-37); MCV 93.3 FL (81-99); RBC 2.97 XMIL (4.2-5.4)
[2017-05-10 07:13] LABS: MPV 11.7 FL (7.4-10.4)
[2017-05-10 07:31] LABS: AGAP 13; ALKALINE PHOSPHATASE 212 U/L (32-104); BUN 14 mg/dL (8-22); CALCIUM 8.1 mg/dL (8.8-10.2); CHLORIDE 102 mmol/L (98-107); COSMO 292; GOT 30 U/L (10-30); GPT 6 U/L (10-36); POTASSIUM 3.7 mmol/L (3.5-5.1); SODIUM 146 mmol/L (136-145); TCO2 31 mmol/L (25-35); TOTAL BILIRUBIN 0.64 mg/dL (0.20-1.00); TOTAL PROTEIN 5.3 g/dL (6.3-8.3)
[2017-05-10] MEDS: CULTURELLE PO SCH (09:51)
[2017-05-10] MEDS: EFFEXOR XR PO SCH (09:52)
[2017-05-10] MEDS: NORCO-10 PO PRN ×2 (09:57→10:00)
[2017-05-10] MEDS: MORPHINE IV PRN ×2 (10:05→16:44)
[2017-05-10 14:25] VITALS: BP 156/78
--- NOTE | 2017-05-12 01:39 | DISCHARGE SUMMARY ---
ADMISSION DATE: 05/01/2017 DISCHARGE DATE: 05/10/2017 CONSULTATIONS: Dr. Jeri Perdomo with Hematology/Oncology. PERTINENT PROCEDURES: 1. Abdominal x-ray showed osteoblastic metastatic disease. No evidence of acute intra-abdominal disease. 2. Brain MRI showed no evidence of intracerebral metastatic disease diffuse meningeal enhancement. This is probably related to metastatic disease throughout the calvarium. 3. Successful lumbar puncture performed on 05/03/2017. 4. Pulmonary arteriogram showed cardiomegaly with bilateral ground glass infiltrates. No large central pulmonary emboli, indeterminate for tiny peripheral pulmonary emboli in the right lower lobe. 5. Bilateral lower extremity venous Doppler showed no obvious superficial or deep venous thrombosis. DISCHARGE DIAGNOSES: 1. Metastatic breast cancer. Treatment was currently on hold. Suspicious the patient may have some meningeal involvement of her metastatic breast cancer. She is status post lumbar testing. She is currently being transferred to [facility] accepted by Dr. Gaines for intrathecal chemo and neuro surgery. 2. Intractable nausea and vomiting secondary to leptomeningeal disease. 3. Clostridium difficile colitis, resolved. Patient continues on Flagyl. She is on day 9 of 14 of treatment. 4. Thrombocytopenia, worsening. 5. Hypoxemic respiratory distress, significantly improved. Remains on supplemental O2. I believe it is secondary to combined pulmonary edema and mild intermittent PE, however, Doppler ultrasound of the lower extremity was negative. The patient is not on any anticoagulation for presumed PE because of low platelets. This was discussed with her oncologist and she was in agreement. 6. Leptomeningeal breast cancer with metastasis and bone metastasis. Again, the patient is being transferred to [facility] for intrathecal treatment as well as neuro surgery. HOSPITAL COURSE: Briefly, Ms. Wade is a 57-year-old female who is currently being treated for stage IV breast cancer with diffuse bony involvement including bone marrow, recently received her Taxol chemotherapy treatment in Dr. Perdomo's office. At that time, she reportedly had nausea, vomiting, and diarrhea with increased weakness and dizziness. CT of the head was done that showed nodular density associated with lining of the posterior aspect of the right lateral ventricle. She then underwent an MRI that was recommended and showed no evidence of intracerebral metastasis disease diffuse meningeal enhancement. She underwent a lumbar puncture for this. I believe she now has an leptomeningeal involvement. The cerebrospinal fluid was consistent with the findings. The patient did receive PRBCs as well as FFPs while in the hospital. Initially, the patient did clinically improve. She was noted to be Clostridium difficile positive. She was started on Flagyl. As of today, she is on day 9 of 14 days of treatment. She was going to be discharged, however, she had an episode where she had respiratory distress and became tachycardic. They became concerned for pulmonary embolism. She underwent a pulmonary arteriogram that showed cardiomegaly with bilateral ground glass infiltrates. No large central pulmonary emboli but an indeterminate for tiny peripheral pulmonary emboli in the right lower lobe. Her discharge was held at that time. Dr. Perdomo did discuss intrathecal chemotherapy with the patient that she was in agreement with. Her nausea and vomiting has improved. Her diarrhea has also resolved, however, her thrombocytopenia continues to worsen. Again, anticoagulation was held secondary to her severe thrombocytopenia. The patient has been accepted to [facility] today for intrathecal chemo as well as Neurosurgery by Dr. Gaines at [facility]. DISCHARGE TIME: 35 minutes. Dictated by DINO Puri for Felipe Winters MD cc: MD Felipe Zapien MD Heather Shah, MD
== END 2017-05-10 19:30 | disposition short-term general hospital (02) ==
LOC: SUATTDRO 11:57 → 3N 11:57 → EDSTATUS 13:00
PROVIDERS: ADMIT Internal Medicine; ATTEND Internal Medicine